=== PATIENT | male | born 1970 | race Caucasian/White ===

== ENCOUNTER → 2017-06-11 | Outpatient (CLI) | payer OTHER ==
--- NOTE | 2017-06-11 11:56 | MR ---
EXAMINATION TYPE: MR knee LT wo con DATE OF EXAM: 06/11/2017 11:47 AM COMPARISON: NONE HISTORY: Left knee pain TECHNIQUE: Multiplanar, multisequence imaging of the left knee is performed. FINDINGS: MEDIAL MENISCUS: Complex tear posterior horn medial meniscus. Radial tear suspected anterior horn med ial meniscus. LATERAL MENISCUS: Anterior and posterior horns are intact without tear. CRUCIATE LIGAMENTS: The anterior and posterior cruciate ligaments are intact and unremarkable. COLLATERAL LIGAMENTS: The medial collateral ligament and lateral collateral ligament complex are intact and unremarkable. EXTENSOR MECHANISM: Visualized quadriceps and patellar tendons are intact. EFFUSION: Small to moderate joint effusion noted. POPLITEAL CYST: No popliteal/costa cyst. TRICOMPARTMENT SPACES: Mild narrowing medial tibiofemoral joint space as well as the patellofemoral j oint space. Spur formation noted. CARTILAGE: The articular cartilage is maintained without abnormal signal or full-thickness defect. BONE MARROW SIGNAL: No focal abnormal marrow signal is appreciated: OTHER: No additional significant abnormality is appreciated. IMPRESSION: 1. Medial meniscal tears as discussed. 2. Joint effusion.
== END | disposition home or self-care (01) ==
LOC: RADMRIMAIN 11:09
PROVIDERS: ATTEND Orthopaedic Surgery
DX: S83.242A Other tear of medial meniscus, current injury, left knee, initial encounter (principal)

== ENCOUNTER → 2017-07-19 | Outpatient (CLI) | payer OTHER | END | disposition home or self-care (01) | LOC: LABPAT 16:47 | PROVIDERS: ATTEND Orthopaedic Surgery | DX: Z01.812 Encounter for preprocedural laboratory examination (principal); M23.92 Unspecified internal derangement of left knee | CPT/HCPCS: 84132 ==

== ENCOUNTER 2017-07-26 06:25 | Day surgery (SDC) | payer OTHER ==
[2017-07-19 11:11] VITALS: BMI 36.9
--- NOTE | 2017-07-25 19:32 | HP ---
HISTORY AND PHYSICAL CHIEF COMPLAINT: Left knee pain. 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 He notes medial pain along with swelling and locking. He has tried medications in addition to an injection with only partial temporary relief. He had a previous arthroscopy in 2009. He notes the pain limits his normal function and activities. PAST MEDICAL HISTORY: Negative. PAST SURGICAL HISTORY: Significant for left knee arthroscopy. CURRENT MEDICATIONS: None. He denies drug allergies. FAMILY HISTORY: Noncontributory. SOCIAL HISTORY: Negative for current tobacco or alcohol use. Sixteen point review of systems otherwise reviewed and is noncontributory. EXAMINATION: The patient is approximately 5 feet 9 inches, 236 pounds of endomorphic habitus. HEENT is nonfocal. Neck is supple. He has painless passive motion of his left hip. Straight leg raise is negative. Active motion of left knee -10 to 115 degrees of flexion. He has a large effusion. He is tender about the medial joint line. Collaterals are stable. Latricia's negative, Jose Carlos's elicits medial pain. His distal neurovascular appears intact in the left lower extremity. MRI report from 06/11/2017 of the left knee shows evidence of a posterior medial meniscal tear along with medial compartment osteoarthrosis. IMPRESSION: Left knee medial compartment osteoarthrosis with symptomatic medial meniscal tear. RECOMMENDATIONS: I talked to the patient at length regarding his treatment options. At this point, he is having persistent pain and mechanical symptoms, despite conservative measures. After a thorough discussion, he opts to proceed with surgery. We will plan to proceed with left knee arthroscopy with possible partial medial meniscectomy and possible medial femoral chondrectomy. We will likely perform that as an outpatient procedure. Risks and benefits were discussed at length in layman's terms. MMODL / IJN: [id number] /
[~2017-07-26 06:25] MED LIST: LACTATED RINGERS 1,000 ML IV SCH; MORPHINE SULFATE 2 MG/ML SYRINGE IV PRN; ONDANSETRON 4 MG/2 ML VIAL IVP PRN; ceFAZolin IN SWFI 2 GM/20 ML SYRINGE IVP ONE
[2017-07-26 06:56] VITALS: RESP 16
[2017-07-26] MEDS ORDERED: LIDOCAINE 1% 20 ML VIAL (10MG/ML) FOR IV START INTRADERMA ONE (07:02)
[2017-07-26] MEDS ORDERED: PROPOFOL 10 MG/ML 20 ML VIAL IV ONE (07:54)
[2017-07-26] MEDS ORDERED: fentaNYL (PF) 50 MCG/ML 2 ML AMP ONE (07:54)
[2017-07-26] MEDS ORDERED: MIDAZOLAM 2 MG/2 ML VIAL ONE (07:54)
[2017-07-26] MEDS ORDERED: LIDOCAINE 1% INJ 10MG/ML (20 ML MDV) ONE (07:54)
[2017-07-26] MEDS ORDERED: MEPERIDINE 50 MG/ML SYRINGE IVP ONE ×2 (08:50→08:55)
--- NOTE | 2017-07-26 08:51 | P.OP ---
Date of Procedure: 07/26/17 Preoperative Diagnosis: Left knee internal derangement Postoperative Diagnosis: Left knee posterior medial meniscal tear/grade 2/3 chondral injury distal lateral femoral condyle/grade 2 chondral injury lateral patella facet Procedure(s) Performed: Left knee arthroscopic partial medial meniscectomy/lateral femoral chondrectomy/ patellar chondroplasty Anesthesia: CARMEN Surgeon: Darshan Pete Estimated Blood Loss (ml): 10 Pathology: none sent Condition: stable Disposition: PACU Indications for Procedure: Patient is a 46-year-old male who presents with progressive left knee pain and mechanical symptoms despite adequate conservative measures. A discussion of the risks and benefits of operative intervention versus continued conservative measures was made with the patient. He opted to proceed with surgery. The specific risks of surgery to include infection, neurovascular injury, development of blood clots, possible incomplete resolution of symptoms, possible worsening symptoms and need for subsequent procedures was discussed. Informed consent was obtained. Operative Findings: As below Description of Procedure: The patient was brought to the operating room, and after induction of general anesthesia examined the left knee. Collaterals were stable, Latricia was negative, and posterior drawer was negative. The left lower extremity was prepped and draped in normal fashion. A superior lateral portal was made through a 3 mm skin incision superior and lateral to the patella. This was used for outflow. A moderate effusion was encountered. A lateral portal was made through a 5 mm vertical skin incision lateral to the patellar tendon above the joint line. Diagnostic arthroscopy was performed. A medial portal was made through a similar incision medial to the patellar tendon above the joint line. On inspection the medial compartment, he is noted have a complex tear involving the posterior horn medial meniscus in the white-red junction. This was not amenable to repair. This debrided back to stable base with straight baskets and a motorized shaver. Grade 3/4 chondral changes were noted involving the anterior medial portion of the medial tibial plateau. On inspection the notch, the anterior cruciate ligament appeared to be intact. On inspection of the lateral compartment, the lateral meniscus appeared intact. A grade 2 chondral defect was noted involving the distal central portion of the lateral femoral condyle measuring 6 x 8 mm. There was a loose chondral flap debrided back to stable base with a motorized shaver. On inspection patellofemoral articulation, a grade 2 chondral injury was noted involving the lateral patella facet. This loose chondral fragment was debrided back to stable base with a motorized shaver. The gutters were clear debris. The knee was then thoroughly irrigated. The portals were closed with Steri-Strips. A sterile dressing was applied in addition to a compression stocking. The patient was awoken from general anesthesia and transferred to recovery room in good condition. Blood loss was estimated at 10 mL. No complications were incurred.
[2017-07-26 08:57] VITALS: TEMP 96.7
[2017-07-26] MEDS: HYDROmorphone 0.5 MG/0.5 ML SYRINGE IVP PRN ×2 (09:00→09:15)
[2017-07-26 09:59] VITALS: BP 130/90; PULSE 61
== END 2017-07-26 10:12 | disposition home or self-care (01) ==
LOC: OR 06:25
PROVIDERS: ATTEND Orthopaedic Surgery
DX: S83.242A Other tear of medial meniscus, current injury, left knee, initial encounter (principal); S89.82XA Other specified injuries of left lower leg, initial encounter; X50.1XXA Overexertion from prolonged static or awkward postures, initial encounter; K21.9 Gastro-esophageal reflux disease without esophagitis; Z79.899 Other long term (current) drug therapy
CPT/HCPCS: 29881; J2250; J2175; J2405; J2001; J3010; J2704; J1170; J0690

== ENCOUNTER → 2017-08-01 | Outpatient (CLI) | payer OTHER ==
--- NOTE | 2017-08-01 14:07 | CT ---
EXAMINATION TYPE: CT abdomen pelvis w con DATE OF EXAM: 08/01/2017 COMPARISON: NONE HISTORY: Right lower quadrant pain CT DLP: 1991.3 mGycm, Automated Exposure Control for Dose Reduction was Utilized. CONTRAST: CT scan of the abdomen and pelvis is performed with oral and with IV Contrast, patient injected with 100 mL of Isovue 300. FINDINGS: LUNG BASES: No significant abnormality is appreciated. LIVER/GB: No significant abnormality is appreciated. PANCREAS: No significant abnormality is seen. SPLEEN: No significant abnormality is seen. ADRENALS: No significant abnormality is seen. KIDNEYS: No significant abnormality is seen. BOWEL: The oral contrast reaches level of the mid right colon. Appendix is felt within normal limits from the base of cecum. There is no suspicious small or large bowel dilatation. Terminal ileum is con trast-filled and felt unremarkable. PROSTATE/SEMINAL VESICLES: No gross abnormality seen. LYMPH NODES: No greater than 1cm abdominal or pelvic lymph nodes are appreciated. OSSEOUS STRUCTURES: Mild disc space narrowing lumbosacral junction is present. OTHER: No significant additional abnormality is seen. IMPRESSION: No significant acute finding is seen to account for patient's clinical symptoms.
== END | disposition home or self-care (01) ==
LOC: RADCTMAIN 11:56
PROVIDERS: ATTEND Family Medicine
DX: R10.31 Right lower quadrant pain (principal)
CPT/HCPCS: 74177; Q9967

== ENCOUNTER → 2017-08-16 | Outpatient (CLI) | payer OTHER ==
--- NOTE | 2017-08-16 16:29 | MR ---
EXAMINATION TYPE: MR knee RT wo con DATE OF EXAM: 08/16/2017 COMPARISON: Plain film dated 03/04/2017 HISTORY: Rt knee pain, no trauma TECHNIQUE: Multiplanar, multisequence imaging of the right knee is performed without IV contrast. FINDINGS: MEDIAL MENISCUS: Posterior horn of the medial meniscus shows a truncated appearance, there is some st ellate signal present at the lateral extent with extension to the articular surface, the root appears somewhat attenuated and possibly discontinuous. LATERAL MENISCUS: Anterior and posterior horns are intact without tear. CRUCIATE LIGAMENTS: The anterior and posterior cruciate ligaments are intact and unremarkable. COLLATERAL LIGAMENTS: The medial collateral ligament and lateral collateral ligament complex are inta ct and unremarkable. EXTENSOR MECHANISM: Visualized quadriceps and patellar tendons are intact. EFFUSION: Suprapatellar joint effusion is present POPLITEAL CYST: No popliteal/costa cyst. TRICOMPARTMENT SPACES: Joint space loss is most significant medially. 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 Possible degenerative tear of the medial meniscus as described
== END | disposition home or self-care (01) ==
LOC: RADMRIMAIN 15:01
PROVIDERS: ATTEND Orthopaedic Surgery
DX: M17.11 Unilateral primary osteoarthritis, right knee (principal)

== ENCOUNTER 2017-09-06 08:18 | Day surgery (SDC) | payer OTHER ==
[2017-09-02 15:05] VITALS: BMI 36.9
--- NOTE | 2017-09-05 09:28 | HP ---
HISTORY AND PHYSICAL CHIEF COMPLAINT: Right knee pain. 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 He has tried medications and an injection with only partial temporary relief. He notes pain and giving way with certain activities. Currently, he is off work, recovering from his left knee arthroscopy. PAST MEDICAL HISTORY: Negative. PAST SURGICAL HISTORY: Significant for previous left knee arthroscopy. CURRENT ALLERGIES: None. He denies drug allergies. FAMILY HISTORY: Noncontributory. SOCIAL HISTORY: Negative for current tobacco or alcohol use. REVIEW OF SYSTEMS: A 16 point review of systems otherwise reviewed and is noncontributory. PHYSICAL EXAMINATION: On examination, the patient is approximately 5 foot 9, 236 pounds of endomorphic habitus. HEENT exam is nonfocal. Neck is supple. He has pain with passive motion of his right hip. Straight leg raise is negative. Active motion right knee -10 to 105 degrees of flexion. He has mild effusion. He is tender about the medial joint line. Collaterals are stable, Latricia's negative, Jose Carlos's elicits medial pain. He has genu varum alignment. His distal neurovascular appears intact in the right lower extremity. X-rays of the right knee obtained in the office show moderate to severe medial compartment narrowing. MRI report from 08/16/2017 shows medial compartment degenerative changes along with a medial meniscal tear. IMPRESSION: 1. Internal derangement, right knee with symptomatic medial meniscal tear. 2. Right knee medial compartment osteoarthrosis. 3. Increased body mass index. RECOMMENDATIONS: I talked to the patient at length regarding his condition and treatment options. At this point, he notes he is quite symptomatic with pain and mechanical symptoms and opts to proceed with surgery. We will plan to proceed with arthroscopic evaluation with probable partial medial meniscectomy. We will likely perform that as an outpatient procedure. Risks and benefits were discussed at length in layman's terms. MMODL / IJN: [id number] /
[~2017-09-06 08:18] MED LIST changes: +LIDOCAINE 1% 20 ML VIAL (10MG/ML) FOR IV START INTRADERMA PRN; -MORPHINE SULFATE 2 MG/ML SYRINGE IV PRN; -ONDANSETRON 4 MG/2 ML VIAL IVP PRN
[2017-09-06] MEDS ORDERED: ONDANSETRON 4 MG/2 ML VIAL IVP ONE (08:38)
[2017-09-06] MEDS ORDERED: DEXAMETHASONE SOD PHOSPHATE 10 MG/ML 1 ML VIAL IV ONE (08:41)
[2017-09-06] MEDS ORDERED: fentaNYL (PF) 50 MCG/ML 2 ML AMP ONE (10:10)
[2017-09-06] MEDS ORDERED: LIDOCAINE 1% INJ 10MG/ML (20 ML MDV) ONE (10:10)
[2017-09-06] MEDS ORDERED: KETOROLAC 30 MG/ML 1 ML VIAL ONE (10:10)
[2017-09-06] MEDS ORDERED: HYDROmorphone (PF) 1 MG/ML ONE (10:10)
[2017-09-06] MEDS ORDERED: SUCCINYLCHOLINE CHLORIDE 100 MG/5 ML SYR IV ONE (10:10)
[2017-09-06] MEDS ORDERED: PROPOFOL 10 MG/ML 20 ML VIAL IV ONE (10:10)
[2017-09-06] MEDS ORDERED: MIDAZOLAM 2 MG/2 ML VIAL ONE (10:10)
--- NOTE | 2017-09-06 11:01 | P.OP ---
Date of Procedure: 09/06/17 Preoperative Diagnosis: Right knee internal derangement/osteoarthrosis Postoperative Diagnosis: Right knee posterior medial meniscal tear/posterior lateral meniscal tear/ reactive synovitis/grade 3 chondral injury distal medial femoral condyle Procedure(s) Performed: Right knee arthroscopic partial medial/lateral meniscectomy, medial femoral chondrectomy, partial synovectomy of the medial, lateral, and patellofemoral compartments Anesthesia: FLAKOA Surgeon: Darshan Pete Estimated Blood Loss (ml): 10 Pathology: none sent Condition: stable Disposition: PACU Indications for Procedure: The patient's a 46-year-old male presents with progressive right knee pain and mechanical symptoms despite conservative measures. A discussion of the risks and benefits of operative intervention versus continued conservative measures was made with patient. He opted to proceed with surgery. Operative risks to include infection, neurovascular injury, development of blood clots, possible incomplete resolution of symptoms, possible worsening symptoms and need for subsequent procedures was discussed. Informed consent was obtained. Operative Findings: As below Description of Procedure: The patient was brought to the operating room, and after induction of general anesthesia examined the right knee. Collaterals were stable, Latricia was negative, and posterior drawer was negative. The right lower extremity was prepped and draped in normal fashion. A superior lateral portal was made through a 5 mm skin incision. This was used for outflow. A moderate effusion was encountered. A lateral portal was made just lateral to the patellar tendon above the joint line through a 5 mm vertical skin incision. Diagnostic arthroscopy was performed. A similar incision was made medial to the patella tendon above the joint line. On inspection of the medial compartment, a complex tear involving the posterior horn of the medial meniscus in the white- junction was noted. This was debrided back to stable base with straight baskets and a motorized shaver. Grade 3/4 chondral changes were noted throughout the medial compartment. A small loose chondral fragment was noted that was debrided back to stable base on the distal medial femoral condyle. Reactive synovitis involving the anterior medial, lateral, and patellofemoral articulation was debrided with a motorized shaver. On inspection the notch, the anterior cruciate ligament appeared to be intact. On inspection the lateral compartment, a small oblique tear involving the posterior aspect of the lateral meniscus in the white-white junction was noted. This debrided back to stable base with a straight baskets and motorized shaver. On inspection of the patellofemoral articulation, there is chondral fibrillation and grade 2/3 degenerative changes however no loose chondral fragments. The gutters were clear debris. The knee was then thoroughly irrigated. The portals were closed with Steri-Strips. A sterile dressing was applied in addition to a compression stocking. The patient was awoken from general anesthesia and transferred to recovery room in good condition. Blood loss was estimated at 10 mL. No complications were incurred.
[2017-09-06 11:07] VITALS: TEMP 97
[2017-09-06 11:43] VITALS: BP 160/79; PULSE 71; RESP 16
== END 2017-09-06 12:12 | disposition home or self-care (01) ==
LOC: OR 08:18
PROVIDERS: ATTEND Orthopaedic Surgery
DX: S83.241A Other tear of medial meniscus, current injury, right knee, initial encounter (principal); S83.281A Other tear of lateral meniscus, current injury, right knee, initial encounter; S89.81XA Other specified injuries of right lower leg, initial encounter; X58.XXXA Exposure to other specified factors, initial encounter; M65.861 Other synovitis and tenosynovitis, right lower leg; K21.9 Gastro-esophageal reflux disease without esophagitis; Z79.891 Long term (current) use of opiate analgesic
CPT/HCPCS: 29880; J2250; J1100; J2405; J2001; J3010; J1885; J1170; J0330; J2704; J0690

== ENCOUNTER → 2019-08-07 | Outpatient (CLI) | payer OTHER | END | disposition home or self-care (01) | LOC: LABWHC1 10:45 | PROVIDERS: ATTEND Orthopaedic Surgery | DX: Z01.812 Encounter for preprocedural laboratory examination (principal); Z01.818 Encounter for other preprocedural examination; M17.11 Unilateral primary osteoarthritis, right knee; Z11.59 Encounter for screening for other viral diseases | CPT/HCPCS: 87070; U0003 ==

== ENCOUNTER 2019-08-11 08:53 | Day surgery (SDC) | payer OTHER ==
[2019-08-06 11:34] VITALS: BMI 41.3
--- NOTE | 2019-08-10 11:46 | HP ---
HISTORY AND PHYSICAL CHIEF COMPLAINT: Right knee pain. 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 It has worsened recently. No swelling, stiffness, and giving out. He notes this significantly limits his activity. He has had previous arthroscopies on both knees. He has tried medications and injections in the past. PAST MEDICAL HISTORY: Significant for gastroesophageal reflux disease. PAST SURGICAL HISTORY: Significant bilateral knee arthroscopy. CURRENT MEDICATIONS: None. He denies drug allergies. FAMILY HISTORY: Noncontributory. SOCIAL HISTORY: Negative for current tobacco or alcohol use. REVIEW OF SYSTEMS: Sixteen point review of systems otherwise reviewed and is noncontributory. PHYSICAL EXAMINATION: On examination, the patient is approximately 5 foot 9, 275 pounds of endomorphic habitus. HEENT exam is nonfocal. NECK: Supple. He has painless passive motion of the right hip. Straight leg raise is negative. Active motion right knee -6 to 120 degrees of flexion. He has mild effusion. He is tender about the medial joint line. Collaterals are stable, Latricia is negative, Jose Carlos's is equivocal. He has genu varum alignment. His distal neurovascular appears intact in the right lower extremity. Weightbearing notch lateral and merchant views of the right knee obtained in the office show severe medial compartment osteoarthrosis. IMPRESSION: 1. Right knee severe medial compartment osteoarthrosis. 2. Increased body mass index. RECOMMENDATIONS: I talked to the patient at length regarding his condition and treatment options. He remains quite symptomatic despite extensive conservative measures. After thorough discussion, he opts to proceed with surgery. We will plan to proceed with right total knee arthroplasty. Risks and benefits were discussed at length in layman's terms. We will institute DVT prophylaxis postoperatively. The patient underwent preoperative medical evaluation by Dr. Barba . MMODL / IJN: [id number] /
[~2019-08-11 08:53] MED LIST changes: +ACETAMINOPHEN TAB 500 MG TAB PO ONE; -LACTATED RINGERS 1,000 ML IV SCH; -LIDOCAINE 1% 20 ML VIAL (10MG/ML) FOR IV START INTRADERMA PRN; +MELOXICAM 7.5 MG TAB PO ONE; +ROPIVACAINE 246.25 MG, EPINEPHrine 0.5 MG, KETOROLAC 30 MG, cloNIDine HCL/PF 80 MCG, WA... MISCELLANE ONE; +TRANEXAMIC ACID 1,000 MG in SODIUM CHLORIDE 0.9% 100 ML IVPB ONE; +ceFAZolin 3 GM in SODIUM CHLORIDE 0.9% 100 ML IVPB ONE; -ceFAZolin IN SWFI 2 GM/20 ML SYRINGE IVP ONE
[2019-08-11] MEDS ORDERED: ACETAMINOPHEN TAB 500 MG TAB ONE (09:27)
[2019-08-11] MEDS ORDERED: ONDANSETRON 4 MG/2 ML VIAL ONE (09:28)
[2019-08-11] MEDS: LACTATED RINGERS 1,000 ML IV SCH ×2 (09:36→15:29)
[2019-08-11] MEDS ORDERED: DEXAMETHASONE SOD PHOSPHATE 10 MG/ML 1 ML VIAL IV ONE (09:37)
[2019-08-11] MEDS ORDERED: ONDANSETRON 4 MG/2 ML VIAL IVP ONE (09:37)
[2019-08-11] MEDS ORDERED: LIDOCAINE 1% (10MG/ML) FOR IV START INTRADERMA ONE (09:37)
[2019-08-11] MEDS ORDERED: MIDAZOLAM 2 MG/2 ML VIAL IV ONE (09:49)
[2019-08-11] MEDS ORDERED: fentaNYL (PF) 50 MCG/ML 2 ML AMP IV ONE (09:49)
[2019-08-11] MEDS ORDERED: PROPOFOL 10 MG/ML 20 ML VIAL IV ONE (10:39)
[2019-08-11] MEDS ORDERED: TRANEXAMIC ACID 1,000 MG/10 ML VIAL ONE (10:39)
[2019-08-11] MEDS ORDERED: fentaNYL (PF) 50 MCG/ML 2 ML AMP ONE (10:39)
[2019-08-11] MEDS ORDERED: MIDAZOLAM 2 MG/2 ML VIAL ONE (10:39)
[2019-08-11] MEDS ORDERED: PHENYLEPHRINE-0.9% NACL SYG 1 MG/10 ML SYRINGE ONE (10:39)
[2019-08-11] MEDS ORDERED: SODIUM CHLORIDE 0.9% 100 ML BAG ONE (10:39)
[2019-08-11] MEDS ORDERED: ceFAZolin 3,000 MG in SODIUM CHLORIDE 0.9% IRRIGATIO 3,000 ML IRRIGATION ONE (11:15)
[2019-08-11] MEDS ORDERED: LACTATED RINGERS 1,000 ML IV ONE (11:30)
[2019-08-11] MEDS ORDERED: HYDROmorphone 1 MG/ML 1 ML SYRINGE IVP PRN (12:27)
[2019-08-11] MEDS ORDERED: MAGNESIUM HYDROXIDE 2,400 MG/10 ML CUP PO PRN (12:27)
[2019-08-11] MEDS ORDERED: ACETAMINOPHEN TAB 325 MG TAB PO PRN (12:27)
[2019-08-11] MEDS ORDERED: NALOXONE 0.4 MG/ML 1 ML VIAL IV PRN (12:27)
[2019-08-11] MEDS ORDERED: traMADol 50 MG TAB PO PRN (12:27)
[2019-08-11] MEDS ORDERED: HYDROmorphone 0.5 MG/0.5 ML SYRINGE IVP PRN (12:27)
[2019-08-11] MEDS ORDERED: ONDANSETRON 4 MG/2 ML VIAL IVP PRN (12:27)
[2019-08-11] MEDS ORDERED: HYDROmorphone 1 MG/ML 1 ML SYRINGE IVP ONE ×3 (13:00→14:04)
--- NOTE | 2019-08-11 13:00 | P.OP ---
Date of Procedure: 08/11/19 Preoperative Diagnosis: Right knee severe tricompartmental osteoarthrosis Postoperative Diagnosis: Same Procedure(s) Performed: Right total knee arthroplastycementedcruciate retaining Implants: Depuy Attune size 8 cemented femoral component, size 7 cemented tibial component, 12 mm articular surface, 38 mm cemented patellar component. This is a cruciate retaining implant. Anesthesia: regional, local, spinal Surgeon: Darshan Pete Reducing Salon Attendant #1: Edil Zaldivar Estimated Blood Loss (ml): 75 Pathology: other (Bone fragments) Condition: stable Disposition: PACU Indications for Procedure: The patient is a 48-year-old male who presents with progressive right knee pain secondary to osteoarthrosis despite extensive conservative measures. A discussion of the risks and benefits of operative intervention versus continued conservative measures made with patient. He opted to proceed with surgery. Operative risks to include infection, neurovascular injury, development of blood clots, possible component loosening, possible component failure need for subsequent procedures was discussed. Informed consent was obtained. Operative Findings: As below Description of Procedure: The patient was brought to the operating room, and after induction of spinal anesthesia the right lower extremity was prepped and draped in a normal fashion. The tourniquet was inflated to 270 mmHg. A longitudinal incision extending 3 finger breaths above the superior pole of the patella extending to the medial aspect the tibial tubercle was then made. The skin and subcutaneous tissues were divided sharply. Electrocautery was used for hemostasis. A medial parapatellar arthrotomy was then performed. The medial soft tissues to include the superficial and deep portions of the medial collateral ligament as well as the medial hamstring tendons were elevated subperiosteally. The proximal medial tibia osteophytes were carefully removed. The patella was everted. The knee was flexed. A portion of the retropatellar fat pad was excised sharply. The anterior cruciate ligament was sacrificed. A starting hole was made in the distal femur 1 cm anterior to the posterior cruciate origin. An intramedullary femoral guide was gently inserted planning on 5 valgus distal cut with 9 mm distal resection. The cutting block was pinned in place. The distal cut was then made. The posterior referencing sizing guide was utilized. 3 of external rotation was built into the system and verified off the trans- epicondylar axis and the posterior condyles. I felt size the was most appropriate. The cutting block was pinned in place. The anterior, posterior, and chamfer cuts were then made. The bone fragments were removed. A sulcus cut was then made with the appropriate guide. The trial size 8 femoral component was then placed and was fully seated. There was good anterior to posterior and medial to lateral fit. The distal peg holes were then drilled. The trial component was then removed. Attention was then paid towards preparing the proximal tibia. An extra medullary guide was utilized in line with the tibial shaft and second metatarsal distally. A 7 posterior slope was planned. I planned on 2 mm resection from the medial compartment. The cutting block was pinned in place. The proximal tibial cut was then made. The bone was removed in one fragment. The remnants of the medial and lateral menisci were excised the capsule junction with electrocautery. The tibia sized most appropriately at size 7. The posterior osteophytes off the distal femur were carefully removed with a curved osteotome. The trial tibial and femoral components were placed along with a 12 millimeters articular surface. I was able to obtain full flexion and extension with good stability with varus and valgus stress. After several flexion and extension cycles, the tibial rotation was marked with electrocautery in line with the medial one third of the tibial tubercle. At tention was then paid towards preparing the patella. A patella reamer was utilized taking this down to 14 mm of bone stock. A good flush cut was made. The patella sized most appropriately at 38 millimeters. The peg holes were then drilled. The trial component was placed. The knee was taken through a range of motion. I had good patellofemoral tracking with no hands technique. The trial components were then removed. The tibia was prepared in the appropriate rotation with appropriate drill and keel punch. The flexion and extension gaps were checked and felt to be symmetric. The posterior soft tissues were injected with ropivacaine. The bony surfaces were prepared with pulsatile lavage and dried. The deep tibial component was then cemented in place and was fully seated. Excess cement was removed. The femoral component was cemented in place and was fully seated. Again excess cement was removed. The trial 12 millimeters surface was then inserted in the knee was put in full extension. The patella component was cemented in place. After the cement had sufficiently hardened, the knee was again taken through a range of motion. Again there was good stability in flexion and extension with varus and valgus stress. The trial articular surface was then removed. The final articular surface was placed and was impacted. Care was taken to avoid any soft tissue interposition. Pulsatile lavage was again utilized. The tourniquet was deflated with approximately 65 minutes total tourniquet time. There was minimal drainage therefore a deep drain was not placed. The medial parapatellar arthrotomy was then closed with #2 Ethibond suture. The subcutaneous tissues were reapproximated interrupted 2- 0 Vicryl sutures. The skin was reapproximated with 3-0 subarticular strata fix suture. Skin tape and adhesive was applied. A sterile dressing was applied. The patient was then awoken from sedation and transferred to recovery room in good condition. Blood loss was estimated at 75 milliliters. No complications were incurred. Sponge and needle counts were correct at the end the case. Matt JENNINGS assisted during the major components this case to include exposure, bone resection, and implantation.
[2019-08-11] MEDS ORDERED: ROPIVACAINE 0.2%-NS ON-Q PUMP 1,090 MG, EMPTY PAIN BALL 1 EACH MISCELLANE PRN (13:05)
[2019-08-11] MEDS ORDERED: diphenhydrAMINE 50 MG/ML 1 ML VIAL IVP ONE (13:13)
[2019-08-11] MEDS ORDERED: KETOROLAC 30 MG/ML 1 ML VIAL IVP ONE (13:20)
--- NOTE | 2019-08-11 13:43 | XR ---
EXAMINATION TYPE: XR knee limited RT DATE OF EXAM: 08/11/2019 COMPARISON: NONE TECHNIQUE: Two views submitted HISTORY: Post op FINDINGS: There is a prosthetic knee in near anatomic alignment. There is soft tissue edema and emphysema. IMPRESSION: 1. Postoperative change. Appears in near-anatomic alignment
[2019-08-11] MEDS ORDERED: HYDROmorphone 0.5 MG/0.5 ML SYRINGE IVP ONE ×2 (14:25→15:00)
--- NOTE | 2019-08-11 15:05 | P.ANPRN ---
Procedure Note - Anesthesia - Nerve Block Performed Right Adductor Canal Infusion Time Out Performed: Yes Date of Procedure: 08/11/19 Indication: Acute Post-Operative Pain, Dx/Pain Location, Requested by Surgeon Sedation Type: Sedate with meaningful contact maintained Preparation: Sterile Prep Position: Supine Catheter: Indwelling Needle Types: Pajunk Needle Gauge: 21 Ultrasound used to visualize needle placement: Yes Ultrasound used to observe medication spread: Yes Injectate: 0.5% Ropivacaine (see comment for volume) (20ml) Blood Aspirated: No Pain Paresthesia on Injection Noted: No Resistance on Injection: Normal Image Stored and Saved: Yes Events: Uneventful and Well Tolerated
[2019-08-11] MEDS: traMADol 50 MG TAB PO SCH ×3 (15:26→22:16)
[2019-08-11] MEDS: HYDROcodone/APAP 7.5-325MG 1 EACH TAB PO PRN (20:11)
[2019-08-11] MEDS: ceFAZolin 3 GM in SODIUM CHLORIDE 0.9% 100 ML IVPB SCH (20:12)
[2019-08-11] MEDS ORDERED: SENNOSIDES-DOCUSATE SODIUM 1 EACH TAB PO SCH (21:00)
[2019-08-11] MEDS ORDERED: OXYMETAZOLINE 0.05% NASL SPRAY 1 SPRAY BOTTLE NASAL PRN (23:00)
[2019-08-12] MEDS: HYDROcodone/APAP 7.5-325MG 1 EACH TAB PO PRN ×3 (02:22→14:21)
[2019-08-12] MEDS: ceFAZolin 3 GM in SODIUM CHLORIDE 0.9% 100 ML IVPB SCH (02:23)
[2019-08-12 04:19] VITALS: RESP 18
--- NOTE | 2019-08-12 05:43 | CONS ---
CONSULTATION DATE OF SERVICE: 08/11/2019 REASON FOR CONSULTATION: Advice regarding degenerative joint disease, hernia repair and other medical issues requested by Orthopedic Surgery. HISTORY OF PRESENT ILLNESS: This 48-year-old gentleman with a past medical history of DJD, history of hernia repair, orthopedic surgeries and nicotine dependence being followed by Dr. Barba in the outpatient setting underwent right total knee arthroplasty cemented cruciate retaining for severe DJD by Dr. Pete. The patient tolerated the procedure well. There is no history of any fever, rigors. No history of headache, loss of consciousness or seizures. Patient is complaining of some minimal pain at this time. PAST MEDICAL HISTORY: History of DJD, history of hernia repair, orthopedic surgery, history of knee arthroscopy. MEDICATIONS: Nasal spray p.r.n. ALLERGIES: None. FAMILY HISTORY: History of breast cancer in the family. SOCIAL HISTORY: Occasional alcohol abuse. History of smoking. REVIEW OF SYSTEMS: ENT: No diminished hearing or diminished vision. CARDIOVASCULAR SYSTEM: No angina or palpitation. RESPIRATORY SYSTEM: No cough or hemoptysis. GI: No nausea. : No dysuria. NERVOUS SYSTEM: As mentioned earlier. ALLERGIES/IMMUNOLOGY: No asthma or hayfever. MUSCULOSKELETAL: As mentioned earlier. HEMATOLOGY: No history anemia. ENDOCRINE: No history of diabetes or hypothyroidism. CONSTITUTIONAL: As mentioned earlier. DERMATOLOGY: Negative. RHEUMATOLOGY: Negative. PSYCHIATRY: As mentioned earlier. PHYSICAL EXAMINATION: The patient is alert and oriented x3. Pulse 85, blood pressure 127/85, respirations 17, temperature 98.4, pulse ox 95% on room air. HEENT: Conjunctivae normal. Oral mucosa moist. NECK: No jugular venous distention. No carotid bruit. No lymph node enlargement. CARDIOVASCULAR: S1, S2 muffled. RESPIRATORY: Breath sounds diminished at the bases. No rhonchi, no crackles. ABDOMEN: Soft, nontender. No mass palpable. LEGS: Status post knee arthroplasty. NERVOUS SYSTEM: No focal deficits. LABS: Hemoglobin 12.6. Otherwise, coags are normal. Chemistry glucose 115, total bilirubin is 1.3. LDL is 131 previously remotely. ASSESSMENT: 1. Status post right total knee arthroplasty for severe degenerative joint disease. 2. History of degenerative joint disease. 3. History of hernia repair. 4. History of a knee arthroscopy. 5. Remote history of nicotine dependence. 6. Obesity with body mass index 42. 7. FULL CODE. RECOMMENDATIONS AND DISCUSSION: This 48-year-old gentleman presented after surgery. At this time, I recommend to continue current medications, continue symptomatic treatment and incentive spirometry. Otherwise, DVT prophylaxis. Recommend close followup with primary physician closely in the outpatient setting. We will follow the patient closely with you. Thank you Dr. Pete for letting us participate in the care of this patient. MMODL / IJN: [id number] /
[2019-08-12 07:42] VITALS: BP 148/71; PULSE 80; TEMP 97.7
[2019-08-12] MEDS: LACTATED RINGERS 1,000 ML IV SCH (08:37)
[2019-08-12] MEDS ORDERED: RIVAROXABAN 10 MG TAB PO SCH (09:00)
[2019-08-12] MEDS: traMADol 50 MG TAB PO SCH ×2 (09:42→11:51)
[2019-08-12 09:53] LABS: Basophils % (A) 0 %; Eosinophils # (A) 0.1 k/uL (0-0.7); Eosinophils % (A) 1 %; HCT 33.6 % (39.0-53.0); HGB 10.3 gm/dL (13.0-17.5); Hypochromasia Moderate; Lymphocytes # (A) 2.1 k/uL (1.0-4.8); Lymphocytes % (A) 20 %; MCHC 30.6 g/dL (31.0-37.0); MCV 84.8 fL (80.0-100.0); Monocytes # (A) 0.6 k/uL (0-1.0); Monocytes % (A) 6 %; Neutrophils # (A) 7.4 k/uL (1.3-7.7); Neutrophils % (A) 71 %; Platelet Count 247 k/uL (150-450); RBC 3.96 m/uL (4.30-5.90); RDW 14.9 % (11.5-15.5); WBC 10.5 k/uL (3.8-10.6)
--- NOTE | 2019-08-12 11:05 | P.PN ---
Subjective Progress Note Date: 08/12/19 Principal diagnosis: Status post right total knee arthroplasty patient doing well today. He has no acute complaints. Denies chest pain or shortness of breath. Objective - Vital Signs Vital signs: Vital Signs Temp 97.7 F 08/12/19 07:00 Pulse 80 08/12/19 08:00 Resp 18 08/12/19 08:00 BP 148/71 08/12/19 07:00 Pulse Ox 97 08/12/19 07:00 Intake & Output 08/11/19 08/12/19 08/12/19 18:59 06:59 18:59 Intake Total 1801 400 Output Total 75 Balance 1726 400 Weight 129 kg Intake: IV 1801 Oral 400 Output: Estimated Blood Loss 75 Other: Voiding Method Toilet Toilet Toilet # Voids 1 - Exam Right lower extremity: Incision is clean, dry, and intact. The exofin fusion tape is in good condition. There is minimal soft tissue swelling and ecchymosis surrounding the medial and lateral aspects of the incision. Calf is soft, no tenderness with palpation. Plantar flexion, dorsiflexion, EHL, FHL are intact. Sensory exam to light touch throughout the extremity is intact, dorsal pedis pulses 2+. - Labs CBC & Chem 7: 08/12/19 09:25 Labs: Abnormal Lab Results - Last 24 Hours (Table) 08/12/19 Range/Units 09:25 RBC 3.96 L (4.30-5.90) m/uL Hgb 10.3 L (13.0-17.5) gm/dL Hct 33.6 L (39.0-53.0) % MCHC 30.6 L (31.0-37.0) g/dL Assessment and Plan Assessment: Status post right total knee arthroplasty Plan: Pain control, we'll discharge home on oral medication GI and DVT prophylaxis, Eliquis 2.5mg bid Wound care instructions discussed Icing elevating techniques discussed Home therapy and nursing after discharge Plan discharge home today Time with Patient: Less than 30
--- NOTE | 2019-08-12 11:09 | P.DS ---
Providers Date of admission: 08/11/2019 Expected date of discharge: 08/12/19 Attending physician: Darshan Pete Consults: 08/11/19 12:27 Consult Physician Routine Consulting Provider: Gerson Barba Consult Reason/Comments: medical management Do you want consulting provider notified?: Yes Primary care physician: Gerson Barba [facility] Course: Date of admission: 08/11/2019 Date of discharge: 08/12/2019 Admission diagnosis: Status post right total knee arthroplasty Discharge diagnosis: Same Attending physician: Dr. Pete Surgical procedures: Right total knee arthroplasty Brief history: Patient is a 48-year-old male with a history of is a primary right knee osteoarthritis. At this point patient has failed conservative treatment measures and has opted to proceed with a elective right total knee arthroplasty. Hospital course: Details of patient's surgery can be found in operative report. Patient tolerated the procedure well and was subsequently transported to orthopedic floor. Patient's orthopeidc and medical care was provided daily. Patient had daily laboratory tests performed for evaluation of overall blood counts. Patient had daily physical therapy to include strengthening range of motion as well as education with walker ambulation. Patient had daily CPM usage as part of their physical therapy program. Patient was treated with Xarelto for their postoperative DVT prophylaxis during their inpatient stay. Patient was noted to have a relatively uneventful postoperative course. Patient reported satisfactory pain control with oral pain medications by postoperative day 0. Patient showed satisfactory progress with physical therapy. Patient moved steadily through the program and had no difficulty meeting the goals by postoperative day 1. Given patient's otherwise satisfactory course and having met physical therapy goals, plan is to discharge patient [home] on postoperative day 1. Discharge condition/disposition: Patient will be discharged home in stable condition. Discharge medications: Instructions are given on resumption of patient's normal daily medications per primary care recommendation, in addition patient will be prescribed [place] 10 mg/325 mg, tramadol 50 mg, Colace 100 mg, Eliquis 2.5mg Discharge instructions: 1. Wound care and infection precautions, keep incision dry and covered while showering, no lotions, creams, moisturizers. No soaking, tubs, pools, hottubs. Do not scrub over the incision. 2. Weight-bear as tolerated with walker / cane until follow-up. 3. Ice and elevate when necessary. Do not exceed 20 minutes per hour with ice pack. 4. Utilize compression sleeve until seen at first follow up appointment. 5. Visiting nursing care. 6. Home physical therapy including home CPM. 7. Pain meds and anticoagulants per prescription. 8. Pain medication has potential to cause constipation. Increase oral fluid and fiber intake. Contact primary care provider if you have not had a bowel movement within 48 hours after discharge 9. No anti-inflammatory medication until discussed at first post operative visit, this including Motrin, Aleve, Mobic, Diclofenac 10. Follow up in office at 2 weeks postop with Matt Zaldivar PA-C 11. Follow up with your primary care doctor 7-10 days after discharge. 12. Contact [facility] with any questions, . Procedures: Right total knee arthroplasty Patient Condition at Discharge: Good Plan - Discharge Summary Discharge Rx Participant: Yes New Discharge Prescriptions: New Docusate [Colace] 100 mg PO DAILY #30 capsule Apixaban [Eliquis] 2.5 mg PO BID #60 tab Hydrocodone/Acetaminophen [[place] 10-325] 1 - 2 each PO Q6H PRN #56 tab PRN Reason: Pain traMADol HCl [Ultram] 50 mg PO Q6H PRN #28 tab PRN Reason: Pain No Action Sinex Nasal [facility]ilion 1 spray NASAL DIRECTED PRN PRN Reason: Congestion Discharge Medication List Sinex Nasal Pavilion 1 spray NASAL DIRECTED PRN 08/06/19 [History] Apixaban [Eliquis] 2.5 mg PO BID #60 tab 08/12/19 [Rx] Docusate [Colace] 100 mg PO DAILY #30 capsule 08/12/19 [Rx] Hydrocodone/Acetaminophen [[place] 10-325] 1 - 2 each PO Q6H PRN #56 tab 08/12/19 [Rx] traMADol HCl [Ultram] 50 mg PO Q6H PRN #28 tab 08/12/19 [Rx] Follow up Appointment(s)/Referral(s): [facility], [NON-STAFF] - Edil Zaldivar PAC [PHYSICIAN SCRAP PILER] - 2 Weeks Patient Instructions/Handouts: *Surgery [facility] - On-Q Pain Pump Discharge Instructions, Precautions after Total Joint Replacement Surgery (DC), Knee Replacement (DC) Activity/Diet/Wound Care/Special Instructions: Orthopedic Discharge Instructions: 1. Wound care and infection precautions, keep incision dry and covered while showering, no lotions, creams, moisturizers. No soaking, pools, hot tubs. Do not scrub over incision. 2. Weight-bear as tolerated with walker / cane until follow-up. 3. Ice and elevate when necessary. Do not exceed 20 minutes per hour with ice pack. 4. Utilize compression sleeve until seen at first follow up appointment. 5. Pain meds and anticoagulants per prescription. 6. Pain medication has potential to cause constipation. Increase oral fluid and fiber intake. Contact primary care provider if you have not had a bowel movement within 48 hours after discharge. 7. No anti-inflammatory medication until discussed at first post operative visit, this including Motrin, Aleve, Mobic, Diclofenac. 8. Follow up in office at 2 weeks postop with Matt Zaldivar PA-C 9. Follow up with your primary care doctor 7-10 days after discharge. 10. Contact [facility] with any questions, [phone]. 11. *Please call [facility] once home to arrange delivery of [employer] (CPM) machine: [phone] Discharge Disposition: HOME WITH HOME HEALTH SERVICES
--- NOTE | 2019-08-12 12:17 | P.PN ---
Progress Note - Text 08/11 630am 48-year-old male status post total knee replacement by Dr. Pete. Patient has an On-Q pump for postop pain control, patient was seen and evaluated this morning. On-Q pump running at 10 mL an hour patient has a VAS score of 2 at rest and 6 with ambulation. Plan to continue On-Q pump infusion
--- NOTE | 2019-08-12 22:28 | PN ---
PROGRESS NOTE DATE OF SERVICE: 08/12/2019 This 48-year-old gentleman who was admitted after knee joint arthroplasty is improving significantly. Patient has some pain which is being managed. No chest pain. No palpitations. No fever. PHYSICAL EXAMINATION: Alert and oriented x3. Pulse is 80, blood pressure 148/70, respiration 18, temperature 97.7, pulse ox 97% on room air. HEENT: Conjunctivae normal. NECK: No jugular venous distention. CARDIOVASCULAR SYSTEM: S1, S2 muffled. RESPIRATORY SYSTEM: Breath sounds diminished at the bases. No rhonchi. No crackles. ABDOMEN: Soft, non-tender. NERVOUS SYSTEM: No focal deficit. EXAMINATION OF RIGHT KNEE: Minimal swelling. Status post arthroplasty. LABS: WBC 10.5, hemoglobin 10.3. ASSESSMENT: 1. Status post right total knee arthroplasty for severe degenerative joint disease. 2. History of degenerative joint disease. 3. History of hernia repair. 4. History of knee arthroscopy. 5. Remote history of nicotine dependence. 6. Obesity with body mass index of 42. 7. FULL CODE. RECOMMENDATIONS AND DISCUSSION: I recommend to continue current medications, continue with the monitoring, symptomatic treatment. Otherwise at this time continue the home medications. Closely follow with primary physician. The rest of the recommendations per Orthopedic Surgery. Incentive spirometry. Further recommendations to follow. MMODL / IJN: [id number] /
== END 2019-08-12 14:37 | disposition home health service (06) ==
LOC: OR 08:53 → 4SSUR 12:55 → OR 08-12 14:37
PROVIDERS: ATTEND Orthopaedic Surgery
DX: M17.0 Bilateral primary osteoarthritis of knee (principal); E66.9 Obesity, unspecified; Z68.41 Body mass index [BMI] 40.0-44.9, adult; Z98.890 Other specified postprocedural states; K21.9 Gastro-esophageal reflux disease without esophagitis; Z87.891 Personal history of nicotine dependence; Z80.3 Family history of malignant neoplasm of breast
CPT/HCPCS: 97110; 97161; 64448; 76942; 85025; 88300; 73560; 27447; C1713; C1776; J2250; J0171; J1200; J1100; J0690 ×3; J2405; J3010; J1885; J1170 ×2; J2795 ×2; J0735

== ENCOUNTER → 2019-10-14 | Outpatient (CLI) | payer OTHER ==
[2019-10-14 14:09] LABS: Basophils # (A) 0.1 k/uL (0-0.2); Basophils % (A) 0 %; Eosinophils # (A) 0.2 k/uL (0-0.7); Eosinophils % (A) 2 %; HCT 41.7 % (39.0-53.0); HGB 12.1 gm/dL (13.0-17.5); Hypochromasia Marked; Lymphocytes # (A) 2.4 k/uL (1.0-4.8); Lymphocytes % (A) 19 %; MCH 22.6 pg (25.0-35.0); MCHC 29.1 g/dL (31.0-37.0); Mean Platelet Volume 8.7; Microcytosis Slight; Monocytes # (A) 0.7 k/uL (0-1.0); Monocytes % (A) 5 %; Neutrophils % (A) 71 %; Platelet Count 384 k/uL (150-450); RBC 5.37 m/uL (4.30-5.90); RDW 15.3 % (11.5-15.5); WBC 12.7 k/uL (3.8-10.6)
[2019-10-14 14:13] LABS: MCV 77.6 fL (80.0-100.0)
[2019-10-14 18:32] LABS: Potassium 4.4 mmol/L (3.5-5.5)
[2019-10-14 18:43] LABS: INR <0.92 (0.90-1.11); Prothrombin Time <9.9 sec (9.9-11.9)
== END | disposition home or self-care (01) ==
LOC: LABWHC1 11:28
PROVIDERS: ATTEND Orthopaedic Surgery
DX: Z01.818 Encounter for other preprocedural examination (principal); M17.12 Unilateral primary osteoarthritis, left knee
CPT/HCPCS: 36415; 80051; 85025; 85610

== ENCOUNTER 2019-10-27 08:31 | Day surgery (SDC) | payer OTHER ==
[2019-10-20 09:23] VITALS: BMI 39.9
--- NOTE | 2019-10-24 13:43 | HP ---
HISTORY AND PHYSICAL CHIEF COMPLAINT: Left knee pain. HISTORY OF PRESENT ILLNESS: The patient is a 49-year-old male who presents with progressive left knee pain secondary to osteoarthrosis over the past several years. It has worsened recently. He takes Lostine intermittently. He has tried previous injections and has had a previous arthroscopy. PAST MEDICAL HISTORY: Significant for arthritis. PAST SURGICAL HISTORY: Significant for right total knee arthroplasty in addition to left knee arthroscopy. CURRENT MEDICATIONS: Lostine. ALLERGIES: He denies drug allergies. FAMILY HISTORY: Noncontributory. SOCIAL HISTORY: Negative for current tobacco or alcohol use. REVIEW OF SYSTEMS: 16 point review of systems otherwise reviewed and is noncontributory. PHYSICAL EXAMINATION: On examination, the patient is approximately 5 foot 9, 257 pounds of endomorphic habitus. HEENT exam is nonfocal. NECK: Supple. He has painless passive motion of his left hip. Straight leg raise is negative. Active motion left knee -10 to 115 degrees of flexion. He has mild effusion. He is tender about the medial joint line. He has genu varum alignment. Collaterals are stable, Latricia is negative. Distal neurovascular appears intact in the left lower extremity. Weightbearing notch, lateral and Merchant views of the left knee obtained in the office show severe medial compartment narrowing. IMPRESSION: Left knee severe medial compartment osteoarthrosis. RECOMMENDATIONS: I talked to the patient at length regarding his condition along with treatment options. At this point, he remains quite symptomatic because of pain related to his osteoarthrosis despite conservative measures. After thorough discussion, he opts to proceed with surgery. We will plan to proceed with left total knee arthroplasty. Risks and benefits were discussed at length in layman's terms. We will institute DVT prophylaxis postoperatively. MMODL / IJN: [id number] /
[~2019-10-27 08:31] MED LIST changes: +DEXAMETHASONE SOD PHOSPHATE 10 MG/ML 1 ML VIAL IV ONE; +LIDOCAINE 1% (10MG/ML) FOR IV START INTRADERMA PRN; +MIDAZOLAM 2 MG/2 ML VIAL IV PRN; +ONDANSETRON 4 MG/2 ML VIAL IVP ONE
[2019-10-27] MEDS: LACTATED RINGERS 1,000 ML IV SCH (09:16)
[2019-10-27] MEDS: fentaNYL (PF) 50 MCG/ML 2 ML AMP IVP PRN ×3 (09:43→13:40)
[2019-10-27] MEDS ORDERED: TRANEXAMIC ACID 1,000 MG/10 ML VIAL ONE (10:42)
[2019-10-27] MEDS ORDERED: PROPOFOL 10 MG/ML 20 ML VIAL IV ONE (10:42)
[2019-10-27] MEDS ORDERED: MIDAZOLAM 2 MG/2 ML VIAL ONE (10:42)
[2019-10-27] MEDS ORDERED: SODIUM CHLORIDE 0.9% 100 ML BAG ONE (10:42)
[2019-10-27] MEDS ORDERED: LIDOCAINE 1% INJ 10MG/ML (20 ML MDV) ONE (10:42)
[2019-10-27] MEDS ORDERED: KETAMINE 10 MG/ML 20 ML VIAL ONE (10:42)
[2019-10-27] MEDS ORDERED: fentaNYL (PF) 50 MCG/ML 2 ML AMP ONE (10:42)
[2019-10-27] MEDS ORDERED: HYDROmorphone (PF) 1 MG/ML ONE (10:42)
[2019-10-27] MEDS ORDERED: ceFAZolin 3,000 MG in SODIUM CHLORIDE 0.9% IRRIGATIO 3,000 ML IRRIGATION ONE (11:24)
[2019-10-27] MEDS ORDERED: HYDROcodone/APAP 10-325MG 1 EACH TAB PO PRN (12:48)
[2019-10-27] MEDS ORDERED: ONDANSETRON 4 MG/2 ML VIAL IVP PRN (12:48)
[2019-10-27] MEDS ORDERED: MAGNESIUM HYDROXIDE 2,400 MG/10 ML CUP PO PRN (12:48)
[2019-10-27] MEDS ORDERED: HYDROmorphone 0.5 MG/0.5 ML SYRINGE IVP PRN (12:48)
[2019-10-27] MEDS ORDERED: traMADol 50 MG TAB PO PRN (12:48)
[2019-10-27] MEDS ORDERED: ACETAMINOPHEN TAB 325 MG TAB PO PRN (12:48)
[2019-10-27] MEDS ORDERED: NALOXONE 0.4 MG/ML 1 ML VIAL IV PRN (12:48)
[2019-10-27] MEDS ORDERED: HYDROmorphone 1 MG/ML 1 ML SYRINGE IVP PRN (12:48)
[2019-10-27] MEDS ORDERED: ROPIVACAINE 0.2%-NS ON-Q PUMP 1,090 MG, EMPTY PAIN BALL 1 EACH MISCELLANE PRN (13:15)
--- NOTE | 2019-10-27 13:17 | P.OP ---
Date of Procedure: 10/27/19 Preoperative Diagnosis: Left knee severe tricompartmental osteoarthrosis Postoperative Diagnosis: Same Procedure(s) Performed: Left total knee arthroplastycementedcruciate retaining Implants: Depuy Attune size 7 cemented femoral component, size 7 cemented tibial component, 9 mm articular surface, 38 mm cemented patellar component. This is a cruciate retaining implant. Anesthesia: regional, local, spinal Surgeon: Darshan Pete Fireworks Display Specialist #1: Edil Zaldivar Estimated Blood Loss (ml): 50 Pathology: other (Bone fragments) Condition: stable Disposition: PACU Indications for Procedure: The patient is a 49-year-old male who presents with progressive left knee pain secondary to osteoarthrosis despite conservative measures. He opted to proceed with surgery. Operative risks to include infection, neurovascular injury, dev elopment of blood clots, possible fracture, possible instability, possible component loosening and need for subsequent procedures was discussed. Informed consent was obtained. Operative Findings: As below Description of Procedure: The patient was brought to the operating room, and after induction of spinal anesthesia the left lower extremity was prepped and draped in a normal fashion. The tourniquet was inflated to 270 mmHg. A longitudinal incision extending 3 finger breaths above the superior pole of the patella extending to the medial aspect the tibial tubercle was then made. The skin and subcutaneous tissues were divided sharply. Electrocautery was used for hemostasis. A medial parapatellar arthrotomy was then performed. The medial soft tissues to include the superficial and deep portions of the medial collateral ligament as well as the medial hamstring tendons were elevated subperiosteally. The proximal medial tibia osteophytes were carefully removed. The patella was everted. The knee was flexed. A portion of the retropatellar fat pad was excised sharply. The anterior cruciate ligament was sacrificed. A starting hole was made in the distal femur 1 cm anterior to the posterior cruciate origin. An intramedullary femoral guide was gently inserted planning on 5 valgus distal cut with 9 mm distal resection. The cutting block was pinned in place. The distal cut was then made. The posterior referencing sizing guide was utilized. 3 of external rotation was built into the system and verified off the trans- epicondylar axis and the posterior condyles. I felt size 7 was most appropriate. The cutting block was pinned in place. The anterior, posterior, and chamfer cuts were then made. The bone fragments were removed. A sulcus cut was then made with the appropriate guide. The trial size 7 femoral component was then placed and was fully seated. There was good anterior to posterior and medial to lateral fit. The distal peg holes were then drilled. The trial component was then removed. Attention was then paid towards preparing the proximal tibia. An extra medullary guide was utilized in line with the tibial shaft and second metatarsal distally. A 7 posterior slope was planned. I planned on 2 mm resection from the medial compartment. The cutting block was pinned in place. The proximal tibial cut was then made. The bone was removed in one fragment. The remnants of the medial and lateral menisci were excised the capsule junction with electrocautery. The tibia sized most appropriately at size 7. The posterior osteophytes off the distal femur were carefully removed with a curved osteotome. The trial tibial and femoral components were placed along with a 9 millimeters articular surface. I was able to obtain full flexion and extension with good stability with varus and valgus stress. After several flexion and extension cycles, the tibial rotation was marked with electrocautery in line with the medial one third of the tibial tubercle. Attention was then paid towards preparing the patella. A patella reamer was utilized taking this down to 14 mm of bone stock. A good flush cut was made. The patella sized most appropriately at 38 millimeters. The peg holes were then drilled. The trial component was placed. The knee was taken through a range of motion. I had good patellofemoral tracking with no hands technique. The trial components were then removed. The tibia was prepared in the appropriate rotation with appropriate drill and keel punch. The flexion and extension gaps were checked and felt to be symmetric. The posterior soft tissues were injected with ropivacaine. The bony surfaces were prepared with pulsatile lavage and dried. The deep tibial component was then cemented in place and was fully seated. Excess cement was removed. The femoral component was cemented in place and was fully seated. Again excess cement was removed. The trial 9 millimeters surface was then inserted in the knee was put in full extension. The patella component was cemented in place. After the cement had sufficiently hardened, the knee was again taken through a range of motion. Again there was good stability in flexion and extension with varus and valgus stress. The trial articular surface was then removed. The final articular surface was placed and was impacted. Care was taken to avoid any soft tissue interposition. Pulsatile lavage was again utilized. The tourniquet was deflated with approximately 80 minutes total tourniquet time. There was minimal drainage therefore a deep drain was not placed. The medial parapatellar arthrotomy was then closed with #2 Ethibond suture. The subcutaneous tissues were reapproximated interrupted 2-0 Vicryl sutures. The skin was reapproximated with 3-0 subarticular strata fix suture. Skin tape and adhesive was applied. A sterile dressing was applied. The patient was then awoken from sedation and transferred to recovery room in good condition. Blood loss was estimated at 50 milliliters. No complications were incurred. Sponge and needle counts were correct at the end the case. Matt JENNINGS assisted during the major components this case to include exposure, bone resection, and implantation.
[2019-10-27] MEDS ORDERED: LACTATED RINGERS 1,000 ML IV ONE ×2 (13:45)
--- NOTE | 2019-10-27 14:05 | XR ---
EXAMINATION TYPE: XR knee limited LT DATE OF EXAM: 10/27/2019 CLINICAL HISTORY: Left knee pain and arthritis status post total knee replacement. TECHNIQUE: Portable AP and crosstable lateral views of the left knee are obtained immediately postop eratively. COMPARISON: None FINDINGS: Metallic hardware from total left knee arthroplasty is seen and appears satisfactory in al ignment and position. There is evidence of recent surgery with diffuse subcutaneous gas and soft tis stacie swelling noted. IMPRESSION: METALLIC HARDWARE FROM TOTAL LEFT KNEE ARTHROPLASTY IS SATISFACTORY IN ALIGNMENT.
[2019-10-27] MEDS: HYDROmorphone 0.5 MG/0.5 ML SYRINGE IVP PRN ×2 (15:00→15:16)
[2019-10-27] MEDS: ceFAZolin 3 GM in SODIUM CHLORIDE 0.9% 100 ML IVPB SCH (18:21)
[2019-10-27 19:31] VITALS: RESP 16
[2019-10-27] MEDS: SENNOSIDES-DOCUSATE SODIUM 1 EACH TAB PO SCH ×2 (20:14→20:17)
[2019-10-27] MEDS: HYDROcodone/APAP 10-325MG 1 EACH TAB PO PRN (20:15)
[2019-10-28] MEDS: LACTATED RINGERS 1,000 ML IV SCH (01:48)
[2019-10-28] MEDS: ceFAZolin 3 GM in SODIUM CHLORIDE 0.9% 100 ML IVPB SCH (02:03)
[2019-10-28] MEDS: HYDROcodone/APAP 10-325MG 1 EACH TAB PO PRN ×2 (02:03→07:25)
[2019-10-28 02:22] VITALS: TEMP 98.1
--- NOTE | 2019-10-28 07:07 | P.ANPRN ---
Procedure Note - Anesthesia - Nerve Block Performed Left Adductor Canal Infusion Time Out Performed: No Date of Procedure: 10/27/19 Procedure Start Time: : Procedure Stop Time: 10:40 Location of Patient: PreOp Indication: Acute Post-Operative Pain, Requested by Surgeon Specifically requested for management of pain by : Darshan Pete Sedation Type: Sedate with meaningful contact maintained Preparation: Sterile Prep, Sterile Dressing Position: Supine Catheter Depth at Skin (cm): 6 Catheter: Indwelling Needle Types: On-Q Needle Gauge: 20 Ultrasound used to visualize needle placement: Yes Ultrasound used to observe medication spread: Yes Injectate: 0.5% Ropivacaine (see comment for volume) Blood Aspirated: No Pain Paresthesia on Injection Noted: No Resistance on Injection: Normal Image Stored and Saved: Yes Events: Uneventful and Well Tolerated (0.5% 15cc Ropicacaine)
--- NOTE | 2019-10-28 07:12 | P.PN ---
Progress Note - Text Progress Note Date: 10/28/19 Patient seen and examined. POD #1 s/p let total knee replacement. Patient resting in bed with 2/10 pain. Patient reports ambulation without difficulty. No motor loss in the left lower extremity. Patient denies fever, chills, parathesias, headache, chest pain, SOB. Catheter site is clean, dry, intact, and without erythema. Continue infusion at 8 cc/hr.
[2019-10-28 07:27] VITALS: BP 106/63; PULSE 76
[2019-10-28 08:11] LABS: Basophils % (A) 0 %; Eosinophils # (A) 0.1 k/uL (0-0.7); Eosinophils % (A) 1 %; HCT 33.7 % (39.0-53.0); HGB 10.2 gm/dL (13.0-17.5); Hypochromasia Marked; Lymphocytes # (A) 2.5 k/uL (1.0-4.8); Lymphocytes % (A) 19 %; MCH 23.8 pg (25.0-35.0); MCHC 30.2 g/dL (31.0-37.0); MCV 78.8 fL (80.0-100.0); Mean Platelet Volume 8.3; Monocytes % (A) 8 %; Neutrophils # (A) 8.9 k/uL (1.3-7.7); Neutrophils % (A) 70 %; Platelet Count 282 k/uL (150-450); RBC 4.28 m/uL (4.30-5.90); RDW 15.9 % (11.5-15.5); WBC 12.7 k/uL (3.8-10.6)
[2019-10-28] MEDS ORDERED: RIVAROXABAN 10 MG TAB PO SCH (09:00)
--- NOTE | 2019-10-28 09:53 | P.PN ---
Subjective Progress Note Date: 10/28/19 Principal diagnosis: status post left total knee arthroplasty patient evaluated at bedside, is resting comfortably. He has done well with therapy. He notes some pain, but it is controlled with current medication. Denies any chest pain or shortness of breath. Objective - Vital Signs Vital signs: Vital Signs Temp 98.1 F 10/28/19 07:00 Pulse 76 10/28/19 07:00 Resp 16 10/28/19 07:00 BP 106/63 10/28/19 07:00 Pulse Ox 99 10/28/19 07:00 Intake & Output 10/27/19 10/28/19 10/28/19 18:59 06:59 18:59 Intake Total 1451 Output Total 50 700 Balance 1401 -700 Weight 125.6 kg Intake: IV 1451 Output: Urine 700 Estimated Blood Loss 50 Other: Voiding Method Urinal # Voids 1 - Exam Left lower extremity: Incision is clean, dry, and intact. The exofin fusion tape is in good condition. There is minimal soft tissue swelling and ecchymosis surrounding the medial and lateral aspects of the incision. Calf is soft, no tenderness with palpation. Plantar flexion, dorsiflexion, EHL, FHL are intact. Sensory exam to light touch throughout the extremity is intact, dorsal pedis pulses 2+. - Labs CBC & Chem 7: 10/28/19 07:20 Labs: Abnormal Lab Results - Last 24 Hours (Table) 10/28/19 Range/Units 07:20 WBC 12.7 H (3.8-10.6) k/uL RBC 4.28 L (4.30-5.90) m/uL Hgb 10.2 L (13.0-17.5) gm/dL Hct 33.7 L (39.0-53.0) % MCV 78.8 L (80.0-100.0) fL MCH 23.8 L (25.0-35.0) pg MCHC 30.2 L (31.0-37.0) g/dL RDW 15.9 H (11.5-15.5) % Neutrophils # 8.9 H (1.3-7.7) k/uL Assessment and Plan Assessment: Status post left total knee arthroplasty Plan: Pain control, plan for discharge home on oral medication Wound care instructions discussed GI and DVT prophylaxis, Eliquis after discharge for 2 weeks Medical recommendations Therapy and nursing after discharge Plan for discharge home today Time with Patient: Less than 30
--- NOTE | 2019-10-28 09:55 | P.DS ---
Providers Date of admission: 10/27/2019 Expected date of discharge: 10/28/19 Attending physician: Darshan Pete Consults: 10/27/19 12:48 Consult Physician Routine Consulting Provider: Montserrat Madera Consult Reason/Comments: medical management Do you want consulting provider notified?: Yes Primary care physician: Stated None Hospital Course: Date of admission: 10/27/2019 Date of discharge: 10/28/2019 Admission diagnosis: Status post left total knee arthroplasty Discharge diagnosis: Same Attending physician: Dr. Pete Surgical procedures: Left total knee arthroplasty Brief history: Patient is a 49-year-old male with a history of progressive primary left knee osteoarthritis. At this point patient has failed conservative treatment measures and has opted to proceed with a elective left total knee arthroplasty. Hospital course: Details of patient's surgery can be found in operative report. Patient tolerated the procedure well and was subsequently transported to [facility]. Patient's orthopeidc and medical care was provided daily. Patient had daily laboratory tests performed for evaluation of overall blood counts. Patient had daily physical therapy to include strengthening range of motion as well as education with walker ambulation. Patient was treated with Xarelto for their postoperative DVT prophylaxis during their inpatient stay. Patient was noted to have a relatively uneventful postoperative course. Patient reported satisfactory pain control with oral pain medications by postoperative day 0. Patient showed satisfactory progress with physical therapy. Patient moved steadily through the program and had no difficulty meeting the goals by postoperative day 1. Given patient's otherwise satisfactory course and having met physical therapy goals, plan is to discharge patient home on postoperative day 1. Discharge condition/disposition: Patient will be discharged home in stable condition. Discharge medications: Instructions are given on resumption of patient's normal daily medications per primary care recommendation, in addition patient will be prescribed [place] 10 mg/325 mg, tramadol 50 mg, Colace 100 mg. Discharge instructions: 1. Wound care and infection precautions, keep incision dry and covered while showering, no lotions, creams, moisturizers. No soaking, tubs, pools, hottubs. Do not scrub over the incision. 2. Weight-bear as tolerated with walker / cane until follow-up. 3. Ice and elevate when necessary. Do not exceed 20 minutes per hour with ice pack. 4. Utilize compression sleeve until seen at first follow up appointment. 5. Visiting nursing care. 6. Home physical therapy including home CPM. 7. Pain meds and anticoagulants per prescription. 8. Pain medication has potential to cause constipation. Increase oral fluid and fiber intake. Contact primary care provider if you have not had a bowel movement within 48 hours after discharge 9. No anti-inflammatory medication until discussed at first post operative visit, this including Motrin, Aleve, Mobic, Diclofenac. 10. Follow up in office at 2 weeks postop with Matt Zaldivar PA-C 11. Follow up with your primary care doctor 7-10 days after discharge. 12. Contact [facility] with any questions, . Procedures: Left total knee arthroplasty Patient Condition at Discharge: Good Plan - Discharge Summary Discharge Rx Participant: Yes New Discharge Prescriptions: New Docusate [Colace] 100 mg PO DAILY #30 capsule Hydrocodone/Acetaminophen [[place] 10-325] 1 - 2 each PO Q6H PRN #56 tab PRN Reason: Pain traMADol HCl [Ultram] 50 mg PO Q6H PRN #28 tab PRN Reason: Pain No Action Sinex Nasal [place] 1 spray EA NOSTRIL BID Hydrocodone/Acetaminophen [[place] 7.5-325] 1 tab PO Q6HR PRN PRN Reason: Pain Discharge Medication List Sinex Nasal [place] 1 spray EA NOSTRIL BID 08/06/19 [History] Hydrocodone/Acetaminophen [[place] 7.5-325] 1 tab PO Q6HR PRN 10/20/19 [History] Docusate [Colace] 100 mg PO DAILY #30 capsule 10/28/19 [Rx] Hydrocodone/Acetaminophen [[place] 10-325] 1 - 2 each PO Q6H PRN #56 tab 10/28/19 [Rx] traMADol HCl [Ultram] 50 mg PO Q6H PRN #28 tab 10/28/19 [Rx] Follow up Appointment(s)/Referral(s): Edil Zaldivar PAC [PHYSICIAN BUSINESS DEVELOPMENT OFFICER] - 11/11/19 2:30 pm Activity/Diet/Wound Care/Special Instructions: Orthopedic Discharge Instructions: 1. Wound care and infection precautions, keep incision dry and covered while showering, no lotions, creams, moisturizers. No soaking, pools, hot tubs. Do not scrub over incision. 2. Weight-bear as tolerated with walker / cane until follow-up. 3. Ice and elevate when necessary. Do not exceed 20 minutes per hour with ice pack. 4. Utilize compression sleeve until seen at first follow up appointment. 5. Pain meds and anticoagulants per prescription. 6. Pain medication has potential to cause constipation. Increase oral fluid and fiber intake. Contact primary care provider if you have not had a bowel movement within 48 hours after discharge. 7. No anti-inflammatory medication until discussed at first post operative visit, this including Motrin, Aleve, Mobic, Diclofenac. 8. Follow up in office at 2 weeks postop with Matt Zaldivar PA-C 9. Follow up with your primary care doctor 7-10 days after discharge. 10. Contact [facility] with any questions, . Discharge Disposition: HOME WITH HOME HEALTH SERVICES
--- NOTE | 2019-10-28 12:00 | P.CONS ---
History of Present Illness - Reason for Consult Leukocytosis - History of Present Illness Patient is a pleasant 49-year-old male is admitted for total left knee arthroplasty patient is postoperative day one doesn't have a Cash catheter doesn't have any signs or symptoms of infection does have some leukocytosis denied any fever chills and dysuria. Patient did pass gas patient is being discharged today Review of Systems REVIEW OF SYSTEMS: CONSTITUTIONAL: No fever, no malaise, no fatigue. HEENT: No recent visual problems or hearing problems. Denied any sore throat. CARDIOVASCULAR: No chest pain, orthopnea, PND, no palpitations, no syncope. PULMONARY: No shortness of breath, no cough, no hemoptysis. GASTROINTESTINAL: No diarrhea, no nausea, no vomiting, no abdominal pain. NEUROLOGICAL: No headaches, no weakness, no numbness. HEMATOLOGICAL: Denies any bleeding or petechiae. GENITOURINARY: Denies any burning micturition, frequency, or urgency. MUSCULOSKELETAL/RHEUMATOLOGICAL: Some pain and surgical site area and patient has a pain management device ENDOCRINE: Denies any polyuria or polydipsia. The rest of the 14-point review of systems is negative. Past Medical History Past Medical History: Osteoarthritis (OA) Additional Past Medical History / Comment(s): SINUS- ALLERGIES , WAS TREATED FOR POISON RASHMI SEPTEMBER 2019- PATIENT STATES NO DRAINAGE AND WAS TREATED,STATES HE DID NOT HAVE THE RASH ON HIS LEGS History of Any Multi-Drug Resistant Organisms: None Reported Past Surgical History: Orthopedic Surgery Additional Past Surgical History / Comment(s): BILATERAL ARTHROSCOPIC KNEE SURGERY, TOTAL RIGHT KNEE; UMBILIAL HERNIA REPAIR Past Anesthesia/Blood Transfusion Reactions: No Reported Reaction Past Psychological History: No Psychological Hx Reported Smoking Status: Never smoker Past Alcohol Use History: Occasional Additional Past Alcohol Use History / Comment(s): STARTED SMOKING 19 QUIT 2004 SMOKED 1/2-1PPD Past Drug Use History: None Reported - Past Family History Mother Family Medical History: No Reported History Medications and Allergies Home Medications Medication Instructions Recorded Confirmed Type Sinex Nasal [place] 1 spray EA NOSTRIL BID 08/06/19 10/27/19 History Hydrocodone/Acetaminophen [[place] 1 tab PO Q6HR PRN 10/20/19 10/27/19 History 7.5-325] Docusate [Colace] 100 mg PO DAILY #30 capsule 10/28/19 Rx Hydrocodone/Acetaminophen [[place] 1 - 2 each PO Q6H PRN #56 tab 10/28/19 Rx 10-325] traMADol HCl [Ultram] 50 mg PO Q6H PRN #28 tab 10/28/19 Rx Allergies Allergy/AdvReac Type Severity Reaction Status Date / Time No Known Allergies Allergy Verified 10/20/19 08:28 Physical Exam Vitals: Vital Signs Temp Pulse Pulse Resp BP Pulse Ox 10/28/19 07:00 98.1 F 76 16 106/63 99 10/28/19 01:15 98.1 F 83 16 118/77 98 10/27/19 18:47 97.6 F 87 16 118/77 95 10/27/19 17:48 97.8 F 89 18 109/68 96 10/27/19 16:30 97.7 F 85 18 123/79 98 10/27/19 16:00 16 129/65 97 10/27/19 15:30 76 16 133/76 98 10/27/19 15:00 78 16 127/65 97 10/27/19 14:30 79 16 129/60 97 10/27/19 13:57 80 16 131/66 96 10/27/19 13:42 77 16 129/84 96 10/27/19 13:28 70 16 120/69 97 10/27/19 13:13 96.8 F L 72 16 138/67 97 Intake and Output 10/27/19 10/28/19 10/28/19 22:59 06:59 14:59 Intake Total 350 Output Total 700 Balance -350 Intake: IV 350 Output: Urine 700 Other: Voiding Method Urinal # Voids 1 Weight 125.6 kg REVIEW OF SYSTEMS: CONSTITUTIONAL: No fever, no malaise, no fatigue. HEENT: No recent visual problems or hearing problems. Denied any sore throat. CARDIOVASCULAR: No chest pain, orthopnea, PND, no palpitations, no syncope. PULMONARY: No shortness of breath, no cough, no hemoptysis. GASTROINTESTINAL: No diarrhea, no nausea, no vomiting, no abdominal pain. NEUROLOGICAL: No headaches, no weakness, no numbness. HEMATOLOGICAL: Denies any bleeding or petechiae. GENITOURINARY: Denies any burning micturition, frequency, or urgency. MUSCULOSKELETAL/RHEUMATOLOGICAL: Denies any joint pain, swelling, or any muscle pain. ENDOCRINE: Denies any polyuria or polydipsia. The rest of the 14-point review of systems is negative. Results CBC & Chem 7: 10/28/19 07:20 Labs: Abnormal Lab Results - Last 24 Hours (Table) 10/28/19 Range/Units 07:20 WBC 12.7 H (3.8-10.6) k/uL RBC 4.28 L (4.30-5.90) m/uL Hgb 10.2 L (13.0-17.5) gm/dL Hct 33.7 L (39.0-53.0) % MCV 78.8 L (80.0-100.0) fL MCH 23.8 L (25.0-35.0) pg MCHC 30.2 L (31.0-37.0) g/dL RDW 15.9 H (11.5-15.5) % Neutrophils # 8.9 H (1.3-7.7) k/uL Assessment and Plan Plan: -leukocytosis: Reactive sclerae to surgery no evidence of infection no further testing is asked at this time -Left knee arthroplasty: Patient is on aspirin 325 mg twice a day patient was asked to hold off is 81 mg of aspirin until his tongue with this DVT prophylaxis -Obesity Patient can be discharged from medical perspective and discharge medication reconciliation was reviewed
== END 2019-10-28 11:38 | disposition home health service (06) ==
LOC: OR 08:31 → 4SSUR 13:10 → OR 10-28 11:38
PROVIDERS: ATTEND Orthopaedic Surgery
DX: M17.12 Unilateral primary osteoarthritis, left knee (principal); D72.829 Elevated white blood cell count, unspecified; E78.5 Hyperlipidemia, unspecified; E66.9 Obesity, unspecified; Z96.651 Presence of right artificial knee joint; Z87.891 Personal history of nicotine dependence; Z79.82 Long term (current) use of aspirin; Z79.891 Long term (current) use of opiate analgesic; Z79.899 Other long term (current) drug therapy; Z98.890 Other specified postprocedural states; Z68.41 Body mass index [BMI] 40.0-44.9, adult
CPT/HCPCS: 27447; 97161; 64448; 76942; 85025; 88300; 73560; C1713; C1776; J2250; J0171; J1100; J0690 ×3; J2405; J2001; J3010; J1885; J1170 ×2; J2795 ×2; J2704; J0735

== ENCOUNTER → 2020-11-25 | Outpatient (CLI) | payer OTHER ==
--- NOTE | 2020-11-25 10:27 | XR ---
Lumbosacral spine HISTORY: Low back pain 5 views of lumbosacral spine There is loss of disc height at L5-S1. Lumbar vertebral bodies show preserved height, alignment, and bone mineralization, there is no evidence spondylolysis. Sclerosis is present in the posterior elemen ts of the lower lumbar spine. Mild anterior wedging of T12 may be physiologic. IMPRESSION: Degenerative disc disease and facet arthropathy.
== END | disposition home or self-care (01) ==
LOC: RADXRYALE 10:07
PROVIDERS: ATTEND Physician Assistant
DX: M51.36 Other intervertebral disc degeneration, lumbar region (principal); M47.816 Spondylosis without myelopathy or radiculopathy, lumbar region
CPT/HCPCS: 72110

== ENCOUNTER → 2021-02-03 | Outpatient (CLI) | payer OTHER ==
--- NOTE | 2021-02-04 00:50 | MR ---
EXAMINATION TYPE: MR lumbar spine wo con DATE OF EXAM: 02/03/2021 COMPARISON: None HISTORY: Low back pain for several years Multiplanar multiecho imaging of the lumbar spine without contrast. Lumbar vertebra have normal alignment. There are somewhat rounded areas of increased signal in the jesus mbar vertebral bodies at the levels of L3 L2 and T12 consistent with fatty marrow replacement. There is no significant compression fracture. There is very slight biconcave deformity of the lumbar verteb ral bodies that could relate to some degree of osteomalacia. There is no lumbar paraspinal mass. Ther e is no spinal stenosis. There is no evidence of lumbar disc herniation. The neural foramina are fair ly well-maintained. The sacroiliac joints are intact. IMPRESSION: Minimal biconcave changes in the lumbar vertebral bodies could relate to some osteomalacia. No spinal stenosis. No evidence of any significant lumbar disc herniation. No acute fracture.
== END | disposition home or self-care (01) ==
LOC: RADMRIMAIN 15:33
PROVIDERS: ATTEND Family Medicine
DX: M54.16 Radiculopathy, lumbar region (principal); M54.50 Low back pain, unspecified
CPT/HCPCS: 72148

== ENCOUNTER 2022-05-14 22:16 | Emergency (ER) | payer OTHER ==
[2022-05-14] MEDS ORDERED: KETOROLAC 15 MG/ML 1 ML VIAL IM STA (22:40)
[2022-05-14] MEDS ORDERED: HYDROcodone/APAP 7.5-325MG 1 EACH TAB PO ONE (22:40)
[2022-05-14] MEDS ORDERED: LIDOCAINE 1% INJ 10MG/ML (30 ML VIAL-PF) SQ ONE (22:57)
[2022-05-14] MEDS ORDERED: DIPH,PERTUS(ACELL)TETVAC-LF 0.5 ML VIAL IM ONE (22:57)
[2022-05-14] MEDS ORDERED: LIDOCAINE/EPINEPHR/TETRACAINE 5 ML BOTTLE TOPICAL ONE ×2 (23:03→23:05)
--- NOTE | 2022-05-14 23:04 | ED ---
Lower Extremity Injury HPI - General Chief Complaint: Extremity Injury, Lower Stated Complaint: right leg injury Time Seen by Provider: 05/14/22 22:30 Source: patient, RN notes reviewed Mode of arrival: ambulatory Limitations: no limitations - History of Present Illness Initial Comments: This is a 51-year-old male who presents to the emergency department for a laceration to the right lower extremity. Patient states that he cut his right yen on a piece of metal today at work. Pain is fairly severe at this time. Unsure when his last tetanus vaccine was. Denies any fevers, chills, sore throat, cough, dyspnea, chest pain, palpitations, abdominal pain, nausea, vomiting, diarrhea, back pain, or headaches. MD Complaint: leg injury - Related Data Home Medications Medication Instructions Recorded Confirmed Sinex Nasal [place] 1 spray EA NOSTRIL BID 08/06/19 10/27/19 Hydrocodone/Acetaminophen [[place] 1 tab PO Q6HR PRN 10/20/19 10/27/19 7.5-325] Previous Rx's Medication Instructions Recorded Docusate [Colace] 100 mg PO DAILY #30 capsule 10/28/19 Hydrocodone/Acetaminophen [[place] 1 - 2 each PO Q6H PRN #56 tab 10/28/19 10-325] traMADol HCl [Ultram] 50 mg PO Q6H PRN #28 tab 10/28/19 Allergies Allergy/AdvReac Type Severity Reaction Status Date / Time No Known Allergies Allergy Verified 05/14/22 22:25 Review of Systems ROS Statement: Those systems with pertinent positive or pertinent negative responses have been documented in the HPI. ROS Other: All systems not noted in ROS Statement are negative. Past Medical History Past Medical History: Osteoarthritis (OA) History of Any Multi-Drug Resistant Organisms: None Reported Past Surgical History: Orthopedic Surgery Additional Past Surgical History / Comment(s): BILATERAL ARTHROSCOPIC KNEE SURGERY, TOTAL RIGHT KNEE; UMBILIAL HERNIA REPAIR Past Anesthesia/Blood Transfusion Reactions: No Reported Reaction Past Psychological History: No Psychological Hx Reported Smoking Status: Never smoker Past Alcohol Use History: Occasional Past Drug Use History: None Reported - Past Family History Mother Family Medical History: No Reported History General Exam Limitations: no limitations General appearance: alert, in no apparent distress Head exam: Present: atraumatic, normocephalic, normal inspection Respiratory exam: Present: normal lung sounds bilaterally. Absent: respiratory distress, wheezes, rales, rhonchi, stridor Cardiovascular Exam: Present: regular rate, normal rhythm, normal heart sounds. Absent: systolic murmur, diastolic murmur, rubs, gallop, clicks Extremities exam: Present: other (4 cm horizontal laceration to the anterior aspect of the right yen. No active bleeding.) Neurological exam: Present: alert, oriented X3, CN II-XII intact Psychiatric exam: Present: normal affect, normal mood Course Vital Signs 05/14/22 05/15/22 22:25 00:24 Temperature 98 F 98.2 F Pulse Rate 99 82 Respiratory 18 16 Rate Blood Pressure 161/83 130/70 O2 Sat by Pulse 98 98 Oximetry Procedures - Laceration Laceration #1 Consent Obtained: verbal consent Indication: laceration Site: other (Right yen) Size (cm): 5 Description: linear Depth: simple, single layer Anesthetic Used: lidocaine 1% Anesthesia Technique: local infiltration Amount (mls): 5 Type of Sutures: nylon Size of Sutures: 4-0 Number of Sutures: 4 Technique: simple, interrupted Medical Decision Making - Medical Decision Making This is a 51-year-old male who presents to the emergency department for a laceration. Was pt. sent in by a medical professional or institution? @ -No Did you speak to anyone other than the patient for history? @ -No Did you review nursing and triage notes? @ -Yes, and I agree, it is accurate with regards to the patient's symptoms. Were old charts reviewed? @ -No Differential Diagnosis? @ -Not applicable What testing was considered but not performed? (CT, X-rays, U/S, labs)? Why? @ -None What meds were considered but not given? Why? @ -None Did you discuss the management of the patient with other professionals? @ -No Did you reconcile home meds? @ -No Was smoking cessation discussed for >3mins.? @ -No Was critical care preformed (if so, how long)? @ -No Were there social determinants of health that impacted care today? How? (Homelessness, low income, unemployed, alcoholism, drug addiction, trans portation, low edu. Level, literacy, decrease access to med. care, [facility], rehab)? @ -No Was there de-escalation of care discussed even if they declined? (Discuss DNR or withdrawal of care, Hospice)? @ -No What co-morbidities impacted this encounter? (DM, HTN, Smoking, COPD, CAD, Cancer, CVA, Hep., AIDS, mental health diagnosis, sleep apnea, morbid obesity)? @ -None Was patient admitted / discharged? @ -Discharged. Patient's tetanus vaccine was updated. Laceration closed with sutures. He is instructed to return here in 7-10 days for suture removal, or follow-up with his primary care provider to have them removed. Advised ibuprofen and Tylenol as needed for pain relief. Undiagnosed new problem with uncertain prognosis? @ -None Drug Therapy requiring intensive monitoring for toxicity (Heparin, Nitro, Insulin, Cardizem)? @ -None Were any procedures done? @ -Laceration repair with sutures. Diagnosis/symptom? @ -Laceration Acute, or Chronic, or Acute on Chronic? @ -Acute Uncomplicated (without systemic symptoms) or Complicated (systemic symptoms)? @ -Uncomplicated Side effects of treatment? @ -None Exacerbation, Progression, or Severe Exacerbation] @ -Not applicable Poses a threat to life or bodily function? @ -No Return precautions reviewed in depth, the patient is instructed to return to the emergency department with any new, worsening, or concerning symptoms. Patient verbalized understanding. This case was discussed in detail with the attending ED physician, Dr. Ge. Presentation, findings, and treatment plan discussed in detail as well. Disposition Clinical Impression: Laceration of right lower leg Disposition: HOME SELF-CARE Instructions (If sedation given, give patient instructions): Care For Your Stitches (ED) Additional Instructions: Return to the emergency department with any new, worsening, or concerning symptoms. Alternate with ibuprofen and Tylenol as needed for pain relief. You can have the sutures removed here in 7-10 days or have them removed by your primary care provider during your appointment next week. Is patient prescribed a controlled substance at d/c from ED?: No Referrals: Gerson Barba DO [Primary Care Provider] - 1-2 days
[2022-05-15] MEDS ORDERED: IBUPROFEN 600 MG STARTER PACK 4 TAB BTL PO STA (00:05)
[2022-05-15] MEDS ORDERED: ACET/COD 300 MG/30 MG STARTER PACK 6 TAB BTL PO STA (00:05)
[2022-05-15 00:24] VITALS: BP 130/70; PULSE 82; RESP 16; TEMP 98.2
== END 2022-05-15 00:24 | disposition home or self-care (01) ==
LOC: EC 22:16
DX: S81.811A Laceration without foreign body, right lower leg, initial encounter (principal); Z23 Encounter for immunization; W26.8XXA Contact with other sharp object(s), not elsewhere classified, initial encounter
CPT/HCPCS: 90715; 12002; 99283; 90471; 96372; J2001; J1885

== ENCOUNTER → 2022-06-11 | Outpatient (CLI) | payer OTHER ==
--- NOTE | 2022-06-12 08:33 | XR ---
EXAMINATION TYPE: XR tibia fibula RT DATE OF EXAM: 06/11/2022 COMPARISON: NONE HISTORY: Soft tissue wound TECHNIQUE: Two views are submitted. FINDINGS: The osseous structures are intact. Postsurgical change involving the knee joint. No destructive jones es. There appears to be a soft tissue ulceration anteriorly near the proximal diaphysis tibia.. IMPRESSION: 1. No acute osseous abnormality.
== END | disposition home or self-care (01) ==
LOC: RADXRMAIN 16:59
PROVIDERS: ATTEND Emergency Medicine
DX: S81.801A Unspecified open wound, right lower leg, initial encounter (principal); Y99.9 Unspecified external cause status

== ENCOUNTER 2022-09-27 05:48 | Emergency (ER) | payer OTHER ==
[2022-09-27 06:07] VITALS: RESP 18; TEMP 98.3
[2022-09-27] MEDS ORDERED: HYDROmorphone 1 MG/ML 1 ML SYRINGE IVP STA (06:20)
[2022-09-27] MEDS ORDERED: ORPHENADRINE 30 MG/ML 2 ML VIAL IVP STA (06:20)
[2022-09-27] MEDS ORDERED: methylPREDNISolone SOD SUCCI 125 MG/2 ML VIAL IV STA (06:20)
[2022-09-27] MEDS ORDERED: KETOROLAC 15 MG/ML 1 ML VIAL IVP STA (06:20)
--- NOTE | 2022-09-27 06:58 | ED ---
Back Pain HPI - General Chief Complaint: Back Pain/Injury Stated Complaint: Lower Back Pain Time Seen by Provider: 09/27/22 06:08 Source: patient, RN notes reviewed Mode of arrival: ambulatory Limitations: no limitations - History of Present Illness Initial Comments: 52-year-old male presents emergency Department with chief complaint of back pain. Patient states he's had on-and-off back issues. Patient states this started yesterday while walking on his house. Patient states that he did not have any electronic injury states it does hurt to move felt like something pulled. Patient has no associated weakness denies any bowel, bladder incontinence or retention or saddle anesthesias. Patient states that pain is an area of he's had before. He denies any dysuria and no fevers or chills no chest pain or shortness breath. - Related Data Home Medications Medication Instructions Recorded Confirmed Sinex Nasal Carter 1 spray EA NOSTRIL BID 08/06/19 10/27/19 Hydrocodone/Acetaminophen [Millen 1 tab PO Q6HR PRN 10/20/19 10/27/19 7.5-325] Previous Rx's Medication Instructions Recorded Docusate [Colace] 100 mg PO DAILY #30 capsule 10/28/19 Hydrocodone/Acetaminophen [Millen 1 - 2 each PO Q6H PRN #56 tab 10/28/19 10-325] traMADol HCl [Ultram] 50 mg PO Q6H PRN #28 tab 10/28/19 Cyclobenzaprine [Flexeril] 10 mg PO TID PRN #15 tab 09/27/22 Ketorolac [Toradol] 10 mg PO Q8HR #15 tab 09/27/22 predniSONE 50 mg PO DAILY #5 tab 09/27/22 Allergies Allergy/AdvReac Type Severity Reaction Status Date / Time No Known Allergies Allergy Verified 09/27/22 06:05 Review of Systems ROS Statement: Those systems with pertinent positive or pertinent negative responses have been documented in the HPI. ROS Other: All systems not noted in ROS Statement are negative. Past Medical History Past Medical History: Osteoarthritis (OA) History of Any Multi-Drug Resistant Organisms: None Reported Past Surgical History: Orthopedic Surgery Additional Past Surgical History / Comment(s): BILATERAL ARTHROSCOPIC KNEE SURGERY, TOTAL RIGHT KNEE; UMBILIAL HERNIA REPAIR Past Anesthesia/Blood Transfusion Reactions: No Reported Reaction Past Psychological History: No Psychological Hx Reported Smoking Status: Never smoker Past Alcohol Use History: Occasional Past Drug Use History: None Reported - Past Family History Mother Family Medical History: No Reported History General Exam Limitations: no limitations General appearance: alert, in no apparent distress Head exam: Present: atraumatic, normocephalic, normal inspection Eye exam: Present: normal appearance, PERRL, EOMI. Absent: scleral icterus, conjunctival injection, periorbital swelling ENT exam: Present: normal exam, normal oropharynx, mucous membranes moist Neck exam: Present: normal inspection, full ROM. Absent: tenderness, meningismus, lymphadenopathy Respiratory exam: Present: normal lung sounds bilaterally. Absent: respiratory distress, wheezes, rales, rhonchi, stridor Cardiovascular Exam: Present: regular rate, normal rhythm, normal heart sounds. Absent: systolic murmur, diastolic murmur, rubs, gallop, clicks GI/Abdominal exam: Present: soft, normal bowel sounds. Absent: distended, tenderness, guarding, rebound, rigid Extremities exam: Present: other (Lower extremity strength equal bilaterally neurovascular intact equal color equal warmth) Back exam: Present: tenderness, muscle spasm, paraspinal tenderness. Absent: full ROM, vertebral tenderness Neurological exam: Present: reflexes normal. Absent: motor sensory deficit Course Vital Signs 09/27/22 06:05 Temperature 98.3 F Pulse Rate 110 H Respiratory 18 Rate Blood Pressure 137/79 O2 Sat by Pulse 98 Oximetry Medical Decision Making - Medical Decision Making Was pt. sent in by a medical professional or institution (, PA, RN FLIGHT, urgent care, hospital, or skilled nursing...) When possible be specific @ -No Did you speak to anyone other than the patient for history (EMS, parent, family, police, friend...)? What history was obtained from this source @ -No Did you review nursing and triage notes (agree or disagree)? Why? @ -I reviewed and agree with nursing and triage notes Were old charts reviewed (outside hosp., previous admission, EMS record, old EKG, old radiological studies, urgent care reports/EKG's, skilled nursing records)? Report findings @ -Reviewed MRI from 2020 Differential Diagnosis (chest pain, altered mental status, abdominal pain women, abdominal pain men, vaginal bleeding, weakness, fever, dyspnea, syncope, headache, dizziness, GI bleed, back pain, seizure, CVA, palpatations, mental health, musculoskeletal)? @ -Differential Back Pain: Strain, zoster, cauda equina syndrome, epidural abscess, vertebral ost eomyelitis, discitis, fracture, subluxation, disc herniation, DJD, spinal stenosis, dissection, AAA, pancreatitis, peptic ulcer disease, pyelonephritis, kidney stone, this is not meant to be an all-inclusive list.e EKG interpreted by me (3pts min.). @ -None X-rays interpreted by me (1pt min.). @ -X-ray lumbar spine shows degenerative changes L5-S1 CT interpreted by me (1pt min.). @ -None done U/S interpreted by me (1pt. min.). @ -None done What testing was considered but not performed or refused? (CT, X-rays, U/S, labs)? Why? @ -None What meds were considered but not given or refused? Why? @ -None Did you discuss the management of the patient with other professionals (professionals i.e. , PA, RN FLIGHT, lab, RT, psych nurse, social science instructor, vocational rehab consultant, teacher, dental officer, major case detective)? Give summary @ -No Was smoking cessation discussed for >3mins.? @ -No Was critical care preformed (if so, how long)? @ -No Were there social determinants of health that impacted care today? How? (Homelessness, low income, unemployed, alcoholism, drug addiction, transportation, low edu. Level, literacy, decrease access to med. care, [facility] [facility], rehab)? @ -No Was there de-escalation of care discussed even if they declined (Discuss DNR or withdrawal of care, Hospice)? DNR status @ -No What co-morbidities impacted this encounter? (DM, HTN, Smoking, COPD, CAD, Cancer, CVA, ARF, Chemo, Hep., AIDS, mental health diagnosis, sleep apnea, morbid obesity)? @ -None Was patient admitted / discharged? Hospital course, mention meds given and route, prescriptions, significant lab abnormalities, going to OR and other pertinent info. @ -discharge patient has a history of chronic back pain with acute exacerbation today. Patient has no red flag symptoms x-rays shows degenerative changes L5- S1. Patient does feel improved after pain medication emergency department. Patient is discharged in stable condition with close follow-up return parameters were discussed. Undiagnosed new problem with uncertain prognosis? @ -No Drug Therapy requiring intensive monitoring for toxicity (Heparin, Nitro, Insulin, Cardizem)? @ -No Were any procedures done? @ -No Diagnosis/symptom? @ -Lumbar back pain Acute, or Chronic, or Acute on Chronic? @ -Acute Uncomplicated (without systemic symptoms) or Complicated (systemic symptoms)? @ -uncomplicated Side effects of treatment? @ -No Exacerbation, Progression, or Severe Exacerbation? @ -Exacerbation Poses a threat to life or bodily function? How? (Chest pain, USA, IA, pneumonia, PE, COPD, DKA, ARF, appy, cholecystitis, CVA, Diverticulitis, Homicidal, Suicidal, threat to staff... and all critical care pts) @ -No Disposition Clinical Impression: Lumbar radiculopathy, Strain of lumbar region Disposition: HOME SELF-CARE Condition: Stable Instructions (If sedation given, give patient instructions): Acute Low Back Pain (ED) Additional Instructions: Please return to the Emergency Department if symptoms worsen or any other concerns. Prescriptions: Cyclobenzaprine [Flexeril] 10 mg PO TID PRN #15 tab PRN Reason: Muscle Spasm predniSONE 50 mg PO DAILY #5 tab Ketorolac [Toradol] 10 mg PO Q8HR #15 tab Is patient prescribed a controlled substance at d/c from ED?: No Referrals: Gerson Barba DO [Primary Care Provider] - 1-2 days Freddie Denise DO [Doctor of Osteopathic Medicine] - 1-2 days Time of Disposition: 07:53
--- NOTE | 2022-09-27 07:33 | XR ---
EXAMINATION TYPE: XR lumbar spine 2 or 3V DATE OF EXAM: 09/27/2022 CLINICAL HISTORY: pain TECHNIQUE: Three views of the lumbar spine are submitted. COMPARISON: Lumbosacral radiograph 11/25/2020, MRI lumbar spine 02/03/2021 FINDINGS: There are 5 lumbar type vertebral bodies identified. The lumbar spine shows satisfactory alignment w ithout evidence of acute fracture or dislocation. Similar anterior wedging of the T12 vertebral body. Mild disc space narrowing with endplate sclerosis and facet arthropathy at L5-S1. The overlying s oft tissue appears unremarkable. IMPRESSION: 1. No acute fracture or dislocation is seen in the lumbar spine. 2. Mild degenerative disc disease and facet arthropathy at L5-S1.
[2022-09-27 08:26] VITALS: BP 134/78; PULSE 87
== END 2022-09-27 08:25 | disposition home or self-care (01) ==
LOC: EC 05:48
DX: S39.012A Strain of muscle, fascia and tendon of lower back, initial encounter (principal); M54.16 Radiculopathy, lumbar region; X50.9XXA Other and unspecified overexertion or strenuous movements or postures, initial encounter; Y92.009 Unspecified place in unspecified non-institutional (private) residence as the place of occurrence of the external cause; Y93.01 Activity, walking, marching and hiking
CPT/HCPCS: 72100; 99284; 96374; 96375 ×3; J2360; J2930; J1170; J1885

== ENCOUNTER 2022-10-07 20:37 | Emergency (ER) | payer OTHER ==
[2022-10-07] MEDS ORDERED: KETOROLAC 15 MG/ML 1 ML VIAL IVP STA (21:47)
[2022-10-07] MEDS ORDERED: ORPHENADRINE 30 MG/ML 2 ML VIAL IVP STA (21:47)
[2022-10-07] MEDS ORDERED: MORPHINE SULFATE 4 MG/ML SYRINGE IVP STA (21:47)
[2022-10-07 22:17] LABS: WBC 32.2 k/uL (3.8-10.6)
[2022-10-07 22:18] LABS: Anisocytosis Slight; Basophils # (A) 0.1 k/uL (0-0.2); Basophils % (A) 0 %; Eosinophils % (A) 0 %; HCT 28.1 % (39.0-53.0); HGB 8.7 gm/dL (13.0-17.5); Hypochromasia Moderate; Lymphocytes # (A) 2.4 k/uL (1.0-4.8); Lymphocytes % (A) 7 %; MCHC 30.8 g/dL (31.0-37.0); MCV 77.8 fL (80.0-100.0); Mean Platelet Volume 9.4; Microcytosis Slight; Monocytes % (A) 3 %; Neutrophils # (A) 28.4 k/uL (1.3-7.7); Neutrophils % (A) 88 %; Platelet Count 734 k/uL (150-450); RBC 3.61 m/uL (4.30-5.90); RDW 16.8 % (11.5-15.5)
[2022-10-07] MEDS ORDERED: SODIUM CHLORIDE 0.9% 1,000 ML IV ONE (22:27)
[2022-10-07 22:50] LABS: Appearance,Urine Cloudy (Clear); Bilirubin,Urine Negative (Negative); Blood,Urine Negative (Negative); Color,Urine Yellow; Glucose,Urine (UA) Negative (Negative); Ketones,Urine Negative (Negative); Leukocyte Esterase,Urine Negative (Negative); Nitrite,Urine Negative (Negative); Protein,Urine Trace (Negative); RBC,Urine 1 /hpf (0-5); Specific Gravity,Urine 1.018 (1.001-1.035); WBC,Urine 1 /hpf (0-5)
[2022-10-07 22:51] LABS: ALT 63 U/L (4-49); AST 43 U/L (17-59); African American GFR (CKD) 67 (>60 ml/min/1.73 sqM); Alkaline Phosphatase 206 U/L (38-126); Blood Urea Nitrogen 42 mg/dL (9-20); Calcium 8.5 mg/dL (8.4-10.2); Carbon Dioxide 24 mmol/L (22-30); Glucose 101 mg/dL (74-99); Lipase 136 U/L (23-300); Magnesium 2.7 mg/dL (1.6-2.3); Non-African American GFR(CKD) 58 (>60 ml/min/1.73 sqM); Total Bilirubin 0.8 mg/dL (0.2-1.3)
[2022-10-07 23:30] LABS: Anion Gap 12 mmol/L; Chloride 97 mmol/L (98-107); Sodium 133 mmol/L (137-145)
--- NOTE | 2022-10-07 23:40 | CT ---
EXAM: CT Cervical Spine Without Intravenous Contrast CLINICAL HISTORY: ITS.REASON CT Reason: Pain TECHNIQUE: Axial computed tomography images of the cervical spine without intravenous contrast. CTDI is 31.6 mGy and DLP is 959.1 mGy-cm. This CT exam was performed using one or more of the following dose reduction techniques: automated exposure control, adjustment of the mA and/or kV according to patient size, and/or use of iterative reconstruction technique. COMPARISON: No previous studies. FINDINGS: Vertebrae: Levoscoliosis. There is straightening and reversal of the peripheral the cervical spine suggestive of muscle spasm. Spinous processes are unremarkable. Grade 1 anterolisthesis of C2 upon C3 vertebral body. There is a normal relationship of C1 and C2. Transaxial images of the cervical spine reveals multilevel posterior facet hypertrophy and disc osteophyte complexes. No acute fracture. Discs/spinal canal/neural foramina: Moderate to severe degenerative disc disease. No spinal canal stenosis. Soft tissues: Paraspinal and regional soft tissues are within normal limits. Lung apices: Lung apices are unremarkable. IMPRESSION: 1. Straightening and reversal of the curvature of the cervical spine suggestive of muscle spasm. 2. No acute injury to the cervical spine.
--- NOTE | 2022-10-07 23:44 | CT ---
EXAM: CT Cervical Spine Without Intravenous Contrast CLINICAL HISTORY: ITS.REASON CT Reason: Pain TECHNIQUE: Axial computed tomography images of the cervical spine without intravenous contrast. CTDI is 16.05 mGy and DLP is 1086.475 mGy-cm. This CT exam was performed using one or more of the following dose reduction techniques: automated exposure control, adjustment of the mA and/or kV according to patient size, and/or use of iterative reconstruction technique. COMPARISON: No relevant prior studies available. FINDINGS: Vertebrae: Kyphosis. Gentle dextroscoliosis. Spinous processes are unremarkable. Transaxial images of the thoracic spine reveals no acute injury to the thoracic spine. Discs/spinal canal/neural foramina: Moderate degenerative disc disease of the thoracic spine. No spinal canal stenosis. Soft tissues: Unremarkable. Pleural space: Small bilateral pleural effusions. Mediastinum: Small to moderate hiatal hernia and probable distal esophagitis. Other findings: No previous studies. IMPRESSION: 1. Degenerative disc disease and kyphosis. 2. Hiatal hernia. 3. No acute injury to the thoracic spine. EXAM: CT Lumbar Spine Without Intravenous Contrast CLINICAL HISTORY: ITS.REASON CT Reason: Pain TECHNIQUE: Axial computed tomography images of the lumbar spine without intravenous contrast. CTDI is 16.05 mGy and DLP is 1086.475 mGy-cm. This CT exam was performed using one or more of the following dose reduction techniques: automated exposure control, adjustment of the mA and/or kV according to patient size, and/or use of iterative reconstruction technique. COMPARISON: No previous studies. FINDINGS: Vertebrae: Spinous processes are unremarkable. Transaxial images of the lumbar spine reveals no acute injury to the lumbar spine. No compression fractures of lumbar vertebral bodies. No spondylolysis. Sacrum/coccyx: Visualized sacrum is unremarkable. Other bones/joints: Sclerotic foci of the posterior right iliac wing are noted most compatible with bone islands. Discs/spinal canal/neural foramina: Mild to moderate degenerative disc disease of the lumbar spine. Vacuum disc at the L5-S1 level. No spinal canal stenosis. Soft tissues: Paraspinal and regional soft tissues are unremarkable. IMPRESSION: 1. Degenerative disc disease of the lumbar spine. 2. No acute injury to the lumbar spine.
--- NOTE | 2022-10-07 23:46 | CT ---
EXAM: CT Abdomen and Pelvis With Intravenous Contrast CLINICAL HISTORY: ITS.REASON CT Reason: Acute abdominal pain, distention TECHNIQUE: Axial computed tomography images of the abdomen and pelvis with intravenous contrast. CTDI is 32.1 mGy and DLP is 2172.95 mGy-cm. This CT exam was performed using one or more of the following dose reduction techniques: automated exposure control, adjustment of the mA and/or kV according to patient size, and/or use of iterative reconstruction technique. COMPARISON: 08/01/2017. FINDINGS: Artifacts: Motion artifact limits evaluation. Lung bases: Scarring and subsegmental atelectasis near the lung bases. Heart: Heart is normal in size. Mediastinum: Moderate hiatal hernia and probable distal esophagitis. ABDOMEN: Liver: Fatty infiltration of the liver. Gallbladder and bile ducts: See below. Pancreas: See below. Spleen: Spleen enhances uniformly. Adrenals: The adrenal glands, the head, body, tail of the pancreas and the gallbladder are unremarkable. Kidneys and ureters: Nonspecific stranding about the perinephric spaces without hydronephrosis. Stomach and bowel: Moderate quantity of stool throughout the colon. Diverticulosis without diverticulitis. No obstruction. PELVIS: Appendix: Appendix is seen on coronal image 59 and is unremarkable. Bladder: Cash catheter within underdistended bladder. Reproductive: Unremarkable as visualized. ABDOMEN and PELVIS: Intraperitoneal space: Unremarkable. No free air. No significant fluid collection. Bones/joints: No acute fracture. No dislocation. No spondylolysis. Soft tissues: Unremarkable. Vasculature: Portal vein is patent. Flow is noted within the celiac, SMA, the renal arteries, and SIOBHAN. No abdominal aortic aneurysm. Lymph nodes: Unremarkable. No retroperitoneal lymphadenopathy. IMPRESSION: 1. Moderate hiatal hernia and distal esophagitis. 2. Fatty liver. 3. Motion artifact limits avulsion. 4. The gallbladder is unremarkable. 5. No hydronephrosis. 6. The appendix is unremarkable. 7. Moderate quantity of stool throughout the colon without bowel obstruction. 8. Diverticulosis without diverticulitis.
--- NOTE | 2022-10-08 00:34 | ED ---
General Adult HPI - General Chief complaint: Back Pain/Injury Stated complaint: Neck Pain, Back pain, Leg Pain Time Seen by Provider: 10/07/22 21:13 Source: patient, EMS Mode of arrival: wheelchair Limitations: no limitations - History of Present Illness Initial comments: This is a 52-year-old male with a past medical history including previous back pain presents emergency department for worsening extreme back pain and inability to completely urinate. The patient stated that he started having back pain on September 25 when he woke up out of sleep complaining of low back pain that radiate down his right leg. The patient was treated for sciatica at that time and was given medications. The patient followed up with his private care physician as well as the chiropractor 2, each, but stated that the pain continued. The patient stated that after the chiropractor on , he had worsening neck and back pain to the point where he could not move. Since the pain began on the , the patient stated that he is unable to walk even with a walker. The patient stated today that he had significant abdominal pain and has been having the sensation of urination however is unable to urinate significantly for last 2 weeks. The patient was in moderate distress secondary to back pain on arrival. The patient denied any numbness and tingling. - Related Data Home Medications Medication Instructions Recorded Confirmed Sinex Nasal [place] 1 spray EA NOSTRIL BID 08/06/19 10/27/19 Hydrocodone/Acetaminophen [Raphine 1 tab PO Q6HR PRN 10/20/19 10/27/19 7.5-325] Previous Rx's Medication Instructions Recorded Docusate [Colace] 100 mg PO DAILY #30 capsule 10/28/19 Hydrocodone/Acetaminophen [Raphine 1 - 2 each PO Q6H PRN #56 tab 10/28/19 10-325] traMADol HCl [Ultram] 50 mg PO Q6H PRN #28 tab 10/28/19 Cyclobenzaprine [Flexeril] 10 mg PO TID PRN #15 tab 09/27/22 Ketorolac [Toradol] 10 mg PO Q8HR #15 tab 09/27/22 predniSONE 50 mg PO DAILY #5 tab 09/27/22 Allergies Allergy/AdvReac Type Severity Reaction Status Date / Time No Known Allergies Allergy Verified 10/07/22 20:52 Review of Systems ROS Statement: Those systems with pertinent positive or pertinent negative responses have been documented in the HPI. ROS Other: All systems not noted in ROS Statement are negative. Past Medical History Past Medical History: Osteoarthritis (OA) History of Any Multi-Drug Resistant Organisms: None Reported Past Surgical History: Orthopedic Surgery Additional Past Surgical History / Comment(s): BILATERAL ARTHROSCOPIC KNEE SURGERY, TOTAL RIGHT KNEE; UMBILIAL HERNIA REPAIR Past Anesthesia/Blood Transfusion Reactions: No Reported Reaction Past Psychological History: No Psychological Hx Reported Smoking Status: Never smoker Past Alcohol Use History: Occasional Past Drug Use History: None Reported - Past Family History Mother Family Medical History: No Reported History General Exam Limitations: no limitations General appearance: alert, in distress (2/2 back pain and lower abdominal pain) Head exam: Present: atraumatic, normocephalic, normal inspection Eye exam: Present: normal appearance, PERRL Pupils: Present: normal accommodation ENT exam: Present: normal exam, normal oropharynx, mucous membranes moist Neck exam: Present: normal inspection, full ROM Respiratory exam: Present: normal lung sounds bilaterally. Absent: respiratory distress Cardiovascular Exam: Present: normal rhythm, tachycardia GI/Abdominal exam: Present: distended, tenderness (TTP over the suprapubic region with fullness noted) Rectal exam: Present: normal rectal tone exam: Present: normal inspection. Absent: urethral discharge, scrotal swelling Extremities exam: Present: normal inspection, pedal edema, other (Decreased ROM 2/2 back pain) Back exam: Present: tenderness (TTP alonog the midline thoracic and lumbar spine), muscle spasm, other (Positive bilateral straight leg test) Neurological exam: Present: alert, oriented X3, CN II-XII intact Psychiatric exam: Present: normal affect, normal mood Skin exam: Present: warm, dry Course Vital Signs 10/07/22 10/07/22 10/07/22 20:50 21:50 22:58 Temperature 98.1 F Pulse Rate 111 H 100 98 Respiratory 18 20 22 Rate Blood Pressure 106/72 136/119 146/83 O2 Sat by Pulse 99 97 97 Oximetry 10/07/22 23:48 Temperature 99.3 F Pulse Rate 100 Respiratory 20 Rate Blood Pressure 146/108 O2 Sat by Pulse 97 Oximetry Medical Decision Making - Medical Decision Making Was pt. sent in by a medical professional or institution (, PA, TESTING MACHINE OPERATOR, urgent care, hospital, or senior care...) When possible be specific @ -No Did you speak to anyone other than the patient for history (EMS, parent, family, police, friend...)? What history was obtained from this source @ -Yes, patient's is at the bedside and stated the patient has had inability to ambulate secondary to continued back pain despite being on multiple different medications for multiple different physicians. The patient at his primary care physician and was given steroids in anti-inflammatories however did not have any improvement even despite going to a chiropractor. The patient stated that he had worsening pain after the chiropractor and the did confirm this. Did you review nursing and triage notes (agree or disagree)? Why? @ -I reviewed and agree with nursing and triage notes Were old charts reviewed (outside hosp., previous admission, EMS record, old EKG, old radiological studies, urgent care reports/EKG's, senior care records)? Report findings @ -No old charts were reviewed Differential Diagnosis (chest pain, altered mental status, abdominal pain women, abdominal pain men, vaginal bleeding, weakness, fever, dyspnea, syncope, headache, dizziness, GI bleed, back pain, seizure, CVA, palpatations, mental health)? @ -Epidural abscess, cauda equina syndrome, bulging or ruptured disc, spinal fracture EKG interpreted by me (3pts min.). @ -As above X-rays interpreted by me (1pt min.). @ -None done CT interpreted by me (1pt min.). @ -CT of the cervical spine, lumbar spine and thoracic spine were obtained and interpreted by myself showing straightening and reversal of the curvature of the cervical spine suggestive of muscle spasm. There was no acute injury to the cervical spine. Lumbar and thoracic spine showed degenerative disc disease and kyphosis, hiatal hernia, no acute intrathoracic thoracic spine. There was no acute injury to the lumbar spine. CT of the abdomen and pelvis with IV contrast was obtained and was interpreted by myself showing moderate hiatal hernia and distal esophagitis, fatty liver, unremarkable gallbladder, no hydronephrosis, appendix is unremarkable. There was moderate quantity of stool throughout the colon without bowel obstruction. There was diverticulosis without diverticulitis. U/S interpreted by me (1pt. min.). @ -None done What testing was considered but not performed or refused? (CT, X-rays, U/S, labs)? Why? @ -None What meds were considered but not given or refused? Why? @ -None Did you discuss the management of the patient with other professionals (professionals i.e. , MICHAELA, TESTING MACHINE OPERATOR, lab, RT, psych nurse, case management social worker, toy packer, teacher, navy airspace officer, case management director)? Give summary @ -Yes, I discussed the patient with the transfer team at [place]. Dr. Wilson from [facility] accepted the patient for transfer. Was smoking cessation discussed for >3mins.? @ -No Was critical care preformed (if so, how long)? @ -No Were there social determinants of health that impacted care today? How? (Homelessness, low income, unemployed, alcoholism, drug addiction, transportation, low edu. Level, literacy, decrease access to med. care, custodial, rehab)? @ -No Was there de-escalation of care discussed even if they declined (Discuss DNR or withdrawal of care, Hospice)? DNR status @ -No What co-morbidities impacted this encounter? (DM, HTN, Smoking, COPD, CAD, Cancer, CVA, ARF, Chemo, Hep., AIDS, mental health diagnosis, sleep apnea, morbid obesity)? @ -Multiple orthopedic surgeries, hypertension Was patient admitted / discharged? Hospital course, mention meds given and route, prescriptions, significant lab abnormalities, going to OR and other pertinent info. @ -The patient was seen and evaluated emergency department. Physical exam, the patient was resting in bed in moderate distress secondary to back pain. Vital signs admission were stable however. The patient was afebrile. Due to the age of the patient's complaints, laboratory workup as well as imaging was obtained. A bladder scan was also ordered and was greater than 900 mL and a Cash catheter was placed. The catheter did return 2000 mL of urine. The patient did have improvement of his symptoms. Laboratory workup showed an elevated white blood cell count of 32 however had no further signs of sepsis at this time. CT imaging was negative for any acute fractures or spinal pathology. The patient on reevaluation had moderate improvement of his pain after medications including morphine, Norflex and Toradol. Due to the patient's continued back pain in the setting of urinary retention and significantly elevated with blood cell count, the patient will require transfer for higher level of care for likely MRI and neurosurgery evaluation. [facility] was initially contacted but stated that they were on diversion. [facility] Chavez was then contacted. Dr. Wilson accepted the patient for transfer and the patient was agreeable to this plan. The patient was transferred in stable condition. Undiagnosed new problem with uncertain prognosis? @ -No Drug Therapy requiring intensive monitoring for toxicity (Heparin, Nitro, Insulin, Cardizem)? @ -No Were any procedures done? @ -No Diagnosis/symptom? @ -Intractable back pain, urinary retention, rule out epidural abscess and cauda equina syndrome Acute, or Chronic, or Acute on Chronic? @ -Acute Uncomplicated (without systemic symptoms) or Complicated (systemic symptoms)? @ -Complicated Side effects of treatment? @ -No Exacerbation, Progression, or Severe Exacerbation? @ -No Poses a threat to life or bodily function? How? (Chest pain, [place], [place], pneumonia, PE, COPD, DKA, ARF, appy, cholecystitis, CVA, Diverticulitis, Homicidal, Suicidal, threat to staff... and all critical care pts) @ -Yes, continued back pain, epidural abscess and possible cauda equina syndrome can lead to permanent damage and possible . - Lab Data Result diagrams: 10/07/22 21:55 10/07/22 21:55 Lab Results 10/07/22 10/07/22 10/07/22 Range/Units 21:55 21:55 21:55 WBC 32.2 H (3.8-10.6) k/uL RBC 3.61 L (4.30-5.90) m/uL Hgb 8.7 L (13.0-17.5) gm/dL Hct 28.1 L (39.0-53.0) % MCV 77.8 L (80.0-100.0) fL MCH 24.0 L (25.0-35.0) pg MCHC 30.8 L (31.0-37.0) g/dL RDW 16.8 H (11.5-15.5) % Plt Count 734 H (150-450) k/uL MPV 9.4 Neutrophils % 88 % Lymphocytes % 7 % Monocytes % 3 % Eosinophils % 0 % Basophils % 0 % Neutrophils # 28.4 H (1.3-7.7) k/uL Lymphocytes # 2.4 (1.0-4.8) k/uL Monocytes # 1.0 (0-1.0) k/uL Eosinophils # 0.0 (0-0.7) k/uL Basophils # 0.1 (0-0.2) k/uL Hypochromasia Moderate Anisocytosis Slight Microcytosis Slight Sodium 133 L (137-145) mmol/L Potassium 5.0 (3.5-5.1) mmol/L Chloride 97 L (98-107) mmol/L Carbon Dioxide 24 (22-30) mmol/L Anion Gap 12 mmol/L BUN 42 H (9-20) mg/dL Creatinine 1.41 H (0.66-1.25) mg/dL Est GFR (CKD-EPI)AfAm 67 (>60 ml/min/1.73 sqM) Est GFR (CKD-EPI)NonAf 58 (>60 ml/min/1.73 sqM) Glucose 101 H (74-99) mg/dL Calcium 8.5 (8.4-10.2) mg/dL Magnesium 2.7 H (1.6-2.3) mg/dL Total Bilirubin 0.8 (0.2-1.3) mg/dL AST 43 (17-59) U/L ALT 63 H (4-49) U/L Alkaline Phosphatase 206 H (38-126) U/L Total Protein 7.0 (6.3-8.2) g/dL Albumin 3.0 L (3.5-5.0) g/dL Lipase 136 (23-300) U/L Urine Color Yellow Urine Appearance Cloudy (Clear) Urine pH 7.0 (5.0-8.0) Ur Specific [place] 1.018 (1.001-1.035) Urine Protein Trace H (Negative) Urine Glucose (UA) Negative (Negative) Urine Ketones Negative (Negative) Urine Blood Negative (Negative) Urine Nitrite Negative (Negative) Urine Bilirubin Negative (Negative) Urine Urobilinogen 12.0 (<2.0) mg/dL Ur Leukocyte Esterase Negative (Negative) Urine RBC 1 (0-5) /hpf Urine WBC 1 (0-5) /hpf Disposition Clinical Impression: Back pain, Urinary retention, Leukocytosis Disposition: OTHER INSTITUTION NOT DEFINED Condition: Stable Is patient prescribed a controlled substance at d/c from ED?: No Referrals: Gerson Barba DO [Primary Care Provider] - 1-2 days Time of Disposition: 00:15 - Out of Hospital Transfer - Req. Specs Out of Hospital Transfer - Requested Specifics: Other Emergency Center ([facility])
[2022-10-08] MEDS ORDERED: MORPHINE SULFATE 4 MG/ML SYRINGE IVP STA (01:28)
[2022-10-08] MEDS ORDERED: ACETAMINOPHEN TAB 500 MG TAB PO STA (01:46)
[2022-10-08 02:01] VITALS: BP 109/68; PULSE 132; RESP 18; TEMP 103.2
== END 2022-10-08 02:04 | disposition other institution (70) ==
LOC: EC 20:37
DX: M54.9 Dorsalgia, unspecified (principal); R33.9 Retention of urine, unspecified; D72.829 Elevated white blood cell count, unspecified
CPT/HCPCS: 51798; 36415; 80053; 83690; 83735; 85025; 81001; 72129; 72125; 72132; 74177; 99284; 51702; 96374; 96375 ×2; 96361; 96376; J2270; J2360; J1885; Q9967

== ENCOUNTER 2022-10-20 22:09 | Observation (INO) | payer OTHER ==
[2022-10-20] MEDS ORDERED: SODIUM CHLORIDE 0.9% 1,000 ML IV STA (22:52)
[2022-10-20] MEDS ORDERED: ONDANSETRON 4 MG/2 ML VIAL IVP STA (22:52)
[2022-10-20] MEDS ORDERED: MORPHINE SULFATE 4 MG/ML SYRINGE IV STA (22:52)
--- NOTE | 2022-10-20 22:52 | ED ---
Recheck HPI - General Chief Complaint: Recheck/Abnormal Lab/Rx Stated Complaint: Recheck Time Seen by Provider: 10/20/22 22:15 Source: patient, RN notes reviewed, old records reviewed Mode of arrival: EMS Limitations: no limitations - History of Present Illness Initial Comments: This is a 52-year-old male presents for evaluation today. Patient presents today to the emergency department for evaluation of failed antibiotic treatment. Patient was brought to the ER today as he was unable to have antibiotics at his extended care facility as they did not have it in stock. Patient will need to be admitted for IV antibiotics replacement to a facility that does have his needed medications. , family very upset current extended-care facility secondary to lack of preparedness MD Complaint: wound re-check, abnormal lab -: hour(s) Returns Today for: needs IV antibiotics Symptoms Since Prior Visit: no new symptoms Context: ran out of medication Associated Symptoms: none Treatments Prior to Arrival: Given Antibiotics on - Related Data Home Medications Medication Instructions Recorded Confirmed Docusate [Colace] 100 mg PO BID 10/21/22 10/21/22 Gabapentin [Neurontin] 300 mg PO TID 10/21/22 10/21/22 Nafcillin [Nafcil] 2 gm IVPB Q4H 10/21/22 10/21/22 Omeprazole [PriLOSEC] 20 mg PO BID 10/21/22 10/21/22 Ondansetron [Zofran] 4 mg PO Q8HR PRN 10/21/22 10/21/22 Pantoprazole Sodium [Protonix] 40 mg PO BID 10/21/22 10/21/22 Sennosides [Senokot] 17.2 mg PO BID 10/21/22 10/21/22 methocarbamoL [Methocarbamol] 750 mg PO QID 10/21/22 10/21/22 oxyCODONE HCL [Oxycodone HCl] 15 mg PO Q3H PRN 10/21/22 10/21/22 polyethylene glycoL 3350 [Miralax] 17 gm PO Q4HR PRN 10/21/22 10/21/22 rifAMPin [Rifadin] 600 mg PO DAILY 10/21/22 10/21/22 traMADol HCl [Ultram] 50 mg PO Q4H PRN 10/21/22 10/21/22 Allergies Allergy/AdvReac Type Severity Reaction Status Date / Time No Known Allergies Allergy Verified 10/21/22 11:01 Review of Systems ROS Statement: Those systems with pertinent positive or pertinent negative responses have been documented in the HPI. ROS Other: All systems not noted in ROS Statement are negative. Past Medical History Past Medical History: Osteoarthritis (OA) History of Any Multi-Drug Resistant Organisms: None Reported Past Surgical History: Orthopedic Surgery Additional Past Surgical History / Comment(s): BILATERAL ARTHROSCOPIC KNEE SURGERY, TOTAL RIGHT KNEE; UMBILIAL HERNIA REPAIR neck fusion c3-7 Past Anesthesia/Blood Transfusion Reactions: No Reported Reaction Past Psychological History: No Psychological Hx Reported Smoking Status: Never smoker Past Alcohol Use History: Occasional Past Drug Use History: None Reported - Past Family History Mother Family Medical History: No Reported History General Exam Limitations: no limitations General appearance: alert, in no apparent distress Head exam: Present: atraumatic, normocephalic, normal inspection Eye exam: Present: normal appearance, PERRL, EOMI. Absent: scleral icterus, conjunctival injection, periorbital swelling ENT exam: Present: normal exam, mucous membranes moist Neck exam: Present: normal inspection. Absent: tenderness, meningismus, lymphadenopathy Respiratory exam: Present: normal lung sounds bilaterally. Absent: respiratory distress, wheezes, rales, rhonchi, stridor Cardiovascular Exam: Present: regular rate, normal rhythm, normal heart sounds. Absent: systolic murmur, diastolic murmur, rubs, gallop, clicks GI/Abdominal exam: Present: soft, normal bowel sounds. Absent: distended, tenderness, guarding, rebound, rigid Extremities exam: Present: normal inspection, full ROM, normal capillary refill. Absent: tenderness, pedal edema, joint swelling, calf tenderness Back exam: Present: normal inspection Neurological exam: Present: alert, oriented X3, CN II-XII intact Psychiatric exam: Present: normal affect, normal mood Skin exam: Present: warm, dry, intact, normal color. Absent: rash Course Vital Signs 10/20/22 10/20/22 10/21/22 22:17 22:22 01:03 Temperature 99.0 F Pulse Rate 93 68 92 Respiratory 20 16 18 Rate Blood Pressure 144/74 144/79 142/72 O2 Sat by Pulse 97 98 94 L Oximetry - Reevaluation(s) Reevaluation #1: 09/03/23 00:24 Medical records reviewed Reevaluation #2: 10/21/22 00:24 Patient symptoms unchanged Reevaluation #3: 10/21/22 00:24 Patient informed results questions answered Reevaluation #4: 10/21/22 00:24 Was pt. sent in by a medical professional or institution (MICHAELA Esparza, KILN HAND, urgent care, hospital, or [facility]...) When possible be specific @ -no Did you speak to anyone other than the patient for history (EMS, parent, family, police, friend...)? What history was obtained from this source @ -no Did you review nursing and triage notes (agree or disagree)? Why? @ -agree Are old charts reviewed (outside hosp., previous admission, EMS record, old EKG, old radiological studies, urgent care reports/EKG's, [facility] records)? Report findings @ -yes Differential Diagnosis (chest pain, altered mental status, abdominal pain women, abdominal pain men, vaginal bleeding, weakness, fever, dyspnea, syncope, headache, dizziness, GI bleed, back pain, seizure, CVA, palpatations, mental health, musculoskeletal)? @ -prior EKG interpreted by me (3pts min.). @ -yes X-rays interpreted by me (1pt min.). @ -no CT interpreted by me (1pt min.). @ -no U/S interpreted by me (1pt. min.). @ -no What testing was considered but not performed or refused? (CT, X-rays, U/S, labs)? Why? @ -none What meds were considered but not given or refused? Why? @ -none Did you discuss the management of the patient with other professionals (professionals i.e. MICHAELA Esparza, KILN HAND, lab, RT, psych nurse, social science instructor, ophthalmology technician, teacher, business enterprise officer, case checker)? Give summary @ -no Was smoking cessation discussed for >3mins.? @ -no Was critical care preformed (if so, how long)? @ -no Were there social determinants of health that impacted care today? How? (Homelessness, low income, unemployed, alcoholism, drug addiction, transportat ion, low edu. Level, literacy, decrease access to med. care, halfway, rehab)? @ -none Was there de-escalation of care discussed even if they declined (Discuss DNR or withdrawal of care, Hospice)? DNR status @ -no What co-morbidities impacted this encounter? (DM, HTN, Smoking, COPD, CAD, Cancer, CVA, ARF, Chemo, Hep., AIDS, mental health diagnosis, sleep apnea, morbid obesity)? @ -none Was patient admitted / discharged? Hospital course, mention meds given and route, prescriptions, significant lab abnormalities, going to OR and other pertinent info. @ - 52 male to the ER for evaluation of evaluation ER IV antibiotics patient will be admitted for treatment and placement Admitted Undiagnosed new problem with uncertain prognosis? @ -no Drug Therapy requiring intensive monitoring for toxicity (Heparin, Nitro, Insulin, Cardizem)? @ -no Were any procedures done? @ -no Diagnosis/symptom? @ -Bacteremia requiring IV antibiotics Acute, or Chronic, or Acute on Chronic? @ -Acute Uncomplicated (without systemic symptoms) or Complicated (systemic symptoms)? @ -Complicated Side effects of treatment? @ -no Exacerbation, Progression, or Severe Exacerbation? @ -exacerbation Poses a threat to life or bodily function? How? (Chest pain, [place], [place], pneumonia, PE, COPD, DKA, ARF, appy, cholecystitis, CVA, Diverticulitis, Homicidal, Suicidal, threat to staff... and all critical care pts) @ -yes with significant sepsis - Consultations Consultation #1: Spoke with sound for admission he agrees Medical Decision Making - Medical Decision Making 52 male to the ER for evaluation of evaluation ER IV antibiotics patient will be admitted for treatment and placement - Lab Data Result diagrams: 10/22/22 12:13 10/21/22 00:01 Lab Results 10/21/22 10/21/22 10/21/22 Range/Units 00:01 00:01 00:01 WBC 8.6 (3.8-10.6) k/uL RBC 3.03 L (4.30-5.90) m/uL Hgb 7.9 L (13.0-17.5) gm/dL Hct 25.1 L (39.0-53.0) % MCV 82.8 D (80.0-100.0) fL MCH 26.0 (25.0-35.0) pg MCHC 31.4 (31.0-37.0) g/dL RDW 16.9 H (11.5-15.5) % Plt Count 621 H (150-450) k/uL MPV 8.4 Neutrophils % 75 % Lymphocytes % 14 % Monocytes % 6 % Eosinophils % 3 % Basophils % 0 % Neutrophils # 6.4 (1.3-7.7) k/uL Lymphocytes # 1.2 (1.0-4.8) k/uL Monocytes # 0.6 (0-1.0) k/uL Eosinophils # 0.3 (0-0.7) k/uL Basophils # 0.0 (0-0.2) k/uL Hypochromasia Marked Anisocytosis Slight PT 13.5 H (9.0-12.0) sec INR 1.3 H (<1.2) APTT 28.2 (22.0-30.0) sec Sodium 133 L (137-145) mmol/L Potassium 3.6 (3.5-5.1) mmol/L Chloride 100 (98-107) mmol/L Carbon Dioxide 26 (22-30) mmol/L Anion Gap 7 mmol/L BUN 9 (9-20) mg/dL Creatinine 0.71 (0.66-1.25) mg/dL Est GFR (CKD-EPI)AfAm >90 (>60 ml/min/1.73 sqM) Est GFR (CKD-EPI)NonAf >90 (>60 ml/min/1.73 sqM) Glucose 92 (74-99) mg/dL Plasma Lactic Acid [place] (0.7-2.0) mmol/L Calcium 8.3 L (8.4-10.2) mg/dL Phosphorus 4.7 H (2.5-4.5) mg/dL Magnesium 2.0 (1.6-2.3) mg/dL Total Bilirubin 0.7 (0.2-1.3) mg/dL AST 24 (17-59) U/L ALT 20 (4-49) U/L Alkaline Phosphatase 90 (38-126) U/L Troponin I (0.000-0.034) ng/mL NT-Pro-B Natriuret Pep 23 pg/mL Total Protein 7.3 (6.3-8.2) g/dL Albumin 2.6 L (3.5-5.0) g/dL 10/21/22 10/21/22 Range/Units 00:01 00:01 WBC (3.8-10.6) k/uL RBC (4.30-5.90) m/uL Hgb (13.0-17.5) gm/dL Hct (39.0-53.0) % MCV (80.0-100.0) fL MCH (25.0-35.0) pg MCHC (31.0-37.0) g/dL RDW (11.5-15.5) % Plt Count (150-450) k/uL MPV Neutrophils % % Lymphocytes % % Monocytes % % Eosinophils % % Basophils % % Neutrophils # (1.3-7.7) k/uL Lymphocytes # (1.0-4.8) k/uL Monocytes # (0-1.0) k/uL Eosinophils # (0-0.7) k/uL Basophils # (0-0.2) k/uL Hypochromasia Anisocytosis PT (9.0-12.0) sec INR (<1.2) APTT (22.0-30.0) sec Sodium (137-145) mmol/L Potassium (3.5-5.1) mmol/L Chloride (98-107) mmol/L Carbon Dioxide (22-30) mmol/L Anion Gap mmol/L BUN (9-20) mg/dL Creatinine (0.66-1.25) mg/dL Est GFR (CKD-EPI)AfAm (>60 ml/min/1.73 sqM) Est GFR (CKD-EPI)NonAf (>60 ml/min/1.73 sqM) Glucose (74-99) mg/dL Plasma Lactic Acid [place] 0.7 (0.7-2.0) mmol/L Calcium (8.4-10.2) mg/dL Phosphorus (2.5-4.5) mg/dL Magnesium (1.6-2.3) mg/dL Total Bilirubin (0.2-1.3) mg/dL AST (17-59) U/L ALT (4-49) U/L Alkaline Phosphatase (38-126) U/L Troponin I <0.012 (0.000-0.034) ng/mL NT-Pro-B Natriuret Pep pg/mL Total Protein (6.3-8.2) g/dL Albumin (3.5-5.0) g/dL - EKG Data -: EKG Interpreted by Me (EKG is sinus 95 DE 146 QRS 108 QTc 404) Disposition Clinical Impression: Weakness, Bacteremia Disposition: ADMITTED IP TO THIS HOSP Condition: Fair Is patient prescribed a controlled substance at d/c from ED?: No Time of Disposition: 00:30
[2022-10-20] MEDS ORDERED: NAFCILLIN 2 GM in DEXTROSE 5% IN WATER 100 ML IVPB ONE ×2 (23:00)
[2022-10-21] MEDS ORDERED: NALOXONE 0.4 MG/ML 1 ML VIAL IV PRN (00:19)
[2022-10-21] MEDS ORDERED: ONDANSETRON 4 MG/2 ML VIAL IVP PRN (00:19)
[2022-10-21 00:23] LABS: ALT 20 U/L (4-49); AST 24 U/L (17-59); African American GFR (CKD) >90 (>60 ml/min/1.73 sqM); Albumin 2.6 g/dL (3.5-5.0); Alkaline Phosphatase 90 U/L (38-126); Anion Gap 7 mmol/L; Blood Urea Nitrogen 9 mg/dL (9-20); Calcium 8.3 mg/dL (8.4-10.2); Carbon Dioxide 26 mmol/L (22-30); Chloride 100 mmol/L (98-107); Glucose 92 mg/dL (74-99); Non-African American GFR(CKD) >90 (>60 ml/min/1.73 sqM); Phosphorus 4.7 mg/dL (2.5-4.5); Potassium 3.6 mmol/L (3.5-5.1); Sodium 133 mmol/L (137-145); Total Bilirubin 0.7 mg/dL (0.2-1.3); Total Protein 7.3 g/dL (6.3-8.2)
[2022-10-21 00:26] LABS: Anisocytosis Slight; Basophils % (A) 0 %; Eosinophils # (A) 0.3 k/uL (0-0.7); Eosinophils % (A) 3 %; HCT 25.1 % (39.0-53.0); HGB 7.9 gm/dL (13.0-17.5); Hypochromasia Marked; Lymphocytes # (A) 1.2 k/uL (1.0-4.8); Lymphocytes % (A) 14 %; MCHC 31.4 g/dL (31.0-37.0); Mean Platelet Volume 8.4; Monocytes # (A) 0.6 k/uL (0-1.0); Monocytes % (A) 6 %; Neutrophils # (A) 6.4 k/uL (1.3-7.7); Neutrophils % (A) 75 %; Platelet Count 621 k/uL (150-450); RBC 3.03 m/uL (4.30-5.90); RDW 16.9 % (11.5-15.5); WBC 8.6 k/uL (3.8-10.6)
[2022-10-21 00:31] LABS: INR 1.3 (<1.2); NT-Pro-B-Type Natriuretic Pept 23 pg/mL; Partial Thromboplastin Time 28.2 sec (22.0-30.0); Prothrombin Time 13.5 sec (9.0-12.0)
[2022-10-21 00:45] LABS: MCV 82.8 fL (80.0-100.0)
[2022-10-21] MEDS: SODIUM CHLORIDE 0.9% 1,000 ML IV SCH (02:19)
[2022-10-21] MEDS ORDERED: CYCLOBENZAPRINE 10 MG TAB PO PRN (02:25)
--- NOTE | 2022-10-21 02:35 | P.HPIM ---
History of Present Illness H&P Date: 10/21/22 Chief Complaint: Reason cervical and lumbar spine epidural abscess 52-year-old male has recently in underwent surgical evacuation of cervical, lumbar vertebral and left knee abscess evacuation at [facility]. Around October 09 he then was discharged yesterday to [facility] that he was supposed to be on antibiotics for another 36 days however to their surprise [facility] did not have the antibiotics and they decided to come to the hospital for further care. Patient currently denies any fevers or chills denies any new onset weakness numbness tingling in his extremities denies any chest pain trouble breathing any cough denies any belly pain nausea vomiting Patient received his care at [facility] where he was treated for sepsis for spinal epidural abscess and left knee septic arthritis He supposed to continue nafcillin 2 g every 4 hours IV piggyback for another 36 days until November 25 review of systems Pertinent positives as noted in HPI. All other systems were reviewed and are negative on exam Constitutional: No acute distress, conversant, pleasant Eyes: Anicteric sclerae, moist conjunctiva, Pupils equal round reactive to light ENMT: NC/AT Oropharynx clear, no erythema, or exudates Neck: Hard neck collar in place Lungs: Clear to auscultation Clear to percussion Normal respiratory effort, no accessory muscle use Cardiovascular: Heart regular in rate and rhythm, No murmurs, gallops, or rubs No peripheral edema Abdominal: Soft Nontender, no guarding, rebound or rigidity Abdomen moving with respiration Normoactive bowel sounds No hepatomegaly, No splenomegaly No palpable mass No abdominal wall hernia noted Skin: Normal temperature, tone, texture, turgor No induration No subcutaneous nodules No rash, lesions No ulcers Extremities: No digital cyanosis No clubbing Pedal pulses intact and symmetrical Radial pulses intact and symmetrical No calf tenderness Psychiatric: Alert and oriented to person, place and time Appropriate affect fair judgement Neuro Muscles Strength 5/5 in bilateral upper extremities 3/5 bilateral lower extremities Sensation to light touch grossly present throughout Cranial nerves II-XII grossly intact Lymphatics: no palpable cervical or supraclavicular lymph nodes Past Medical History Past Medical History: Osteoarthritis (OA) History of Any Multi-Drug Resistant Organisms: None Reported Past Surgical History: Orthopedic Surgery Additional Past Surgical History / Comment(s): BILATERAL ARTHROSCOPIC KNEE SURGERY, TOTAL RIGHT KNEE; UMBILIAL HERNIA REPAIR neck fusion c3-7, left knee, I&D?, back/Neck Past Anesthesia/Blood Transfusion Reactions: No Reported Reaction Additional Past Anesthesia/Blood Transfusion Reaction / Comment(s): thinks he had transfusion following most recent surgery Past Psychological History: No Psychological Hx Reported Smoking Status: Never smoker Past Alcohol Use History: Occasional Additional Past Alcohol Use History / Comment(s): QUIT SMOKING 25 YRS AGO Past Drug Use History: None Reported - Past Family History Mother Family Medical History: No Reported History Medications and Allergies Home Medications Medication Instructions Recorded Confirmed Type Sinex Nasal [place] 1 spray EA NOSTRIL BID 08/06/19 10/27/19 History Hydrocodone/Acetaminophen [[place] 1 tab PO Q6HR PRN 10/20/19 10/27/19 History 7.5-325] Docusate [Colace] 100 mg PO DAILY #30 capsule 10/28/19 Rx Hydrocodone/Acetaminophen [[place] 1 - 2 each PO Q6H PRN #56 tab 10/28/19 Rx 10-325] traMADol HCl [Ultram] 50 mg PO Q6H PRN #28 tab 10/28/19 Rx Cyclobenzaprine [Flexeril] 10 mg PO TID PRN #15 tab 09/27/22 Rx Ketorolac [Toradol] 10 mg PO Q8HR #15 tab 09/27/22 Rx predniSONE 50 mg PO DAILY #5 tab 09/27/22 Rx Allergies Allergy/AdvReac Type Severity Reaction Status Date / Time No Known Allergies Allergy Verified 10/07/22 20:52 Physical Exam Vitals: Vital Signs Temp Pulse Resp BP Pulse Ox 10/21/22 01:03 92 18 142/72 94 L 10/20/22 22:22 68 16 144/79 98 10/20/22 22:17 99.0 F 93 20 144/74 97 Intake and Output 10/20/22 10/20/22 10/21/22 14:59 22:59 06:59 Other: Voiding Method Indwelling Catheter Weight 140.614 kg 140.614 kg Results CBC & Chem 7: 10/21/22 00:01 10/21/22 00:01 Labs: Abnormal Lab Results - Last 24 Hours (Table) 10/21/22 10/21/22 10/21/22 Range/Units 00:01 00:01 00:01 RBC 3.03 L (4.30-5.90) m/uL Hgb 7.9 L (13.0-17.5) gm/dL Hct 25.1 L (39.0-53.0) % RDW 16.9 H (11.5-15.5) % Plt Count 621 H (150-450) k/uL PT 13.5 H (9.0-12.0) sec INR 1.3 H (<1.2) Sodium 133 L (137-145) mmol/L Calcium 8.3 L (8.4-10.2) mg/dL Phosphorus 4.7 H (2.5-4.5) mg/dL Albumin 2.6 L (3.5-5.0) g/dL Thrombosis Risk Factor Assmnt - Choose All That Apply Any of the Below Risk Factors Present?: Yes Each Factor Represents 1 point: Age 41-60 years, History of prior major surgery (<1month), Medical pt on bed rest, Obesity (BMI >25) Thrombosis Risk Factor Assessment Total Risk Factor Score: 4 Thrombosis Risk Factor Assessment Level: Moderate Risk Assessment and Plan Assessment: 52-year-old male recently diagnosed and treated for spinal at the general abscess of the cervical spine level and lumbar vertebrae level along with left septic arthritis he received his care at [facility] discharged yesterday to [facility] to continue antibiotics for 36 days however [facility] did not carry his antibiotic and he had to come to the hospital for further care I did discuss the case with the ED doctor and accepted the admission to continue IV antibiotics with anticipated length of stay less than 2 midnights Recent epidural abscess in the cervical spine no lung lumbar vertebra level with left septic arthritis status post surgical evacuation around October 08- Continue with antibiotics until November 25 (4 total of another 36 days Nafcillin 2 g every 4 hours IV piggyback Rifampin 600 mg by mouth daily Pain control with [place] when necessary Tylenol for fever when necessary Flexeril when necessary for spasms Blood work reviewed Showed subacute anemia hemoglobin 7.9 continue to monitor hemoglobin, patient denies active bleeding White count 8.6 Renal function unremarkable sodium 133 potassium 3.6 BUN 9 creatinine 0.7 DVT prophylaxis mechanical due to recent spine surgery Full code
[2022-10-21] MEDS: NAFCILLIN 2 GM in DEXTROSE 5% IN WATER 100 ML IVPB SCH ×10 (04:00→20:29)
[2022-10-21] MEDS: MORPHINE SULFATE 4 MG/ML SYRINGE IV PRN ×5 (04:01→20:30)
[2022-10-21] MEDS: rifAMPin 300 MG CAP PO SCH (08:37)
[2022-10-21] MEDS ORDERED: traMADol 50 MG TAB PO PRN (16:25)
[2022-10-21] MEDS ORDERED: polyethylene glycoL 3350 17 GM POWD.PACK PO PRN (16:25)
[2022-10-21] MEDS: methocarbamoL 750 MG TAB PO SCH ×2 (17:35→22:00)
[2022-10-21] MEDS: DOCUSATE 100 MG CAP PO SCH (20:29)
[2022-10-21] MEDS: PANTOPRAZOLE 40 MG TABLET PO SCH (20:29)
[2022-10-21] MEDS: GABAPENTIN 300 MG CAP PO SCH (22:00)
[2022-10-22] MEDS: MORPHINE SULFATE 4 MG/ML SYRINGE IV PRN ×3 (00:20→20:07)
[2022-10-22] MEDS: NAFCILLIN 2 GM in DEXTROSE 5% IN WATER 100 ML IVPB SCH ×12 (00:20→21:35)
[2022-10-22] MEDS: SODIUM CHLORIDE 0.9% 1,000 ML IV SCH (01:54)
[2022-10-22] MEDS: methocarbamoL 750 MG TAB PO SCH ×4 (09:25→21:34)
[2022-10-22] MEDS: rifAMPin 300 MG CAP PO SCH (09:25)
[2022-10-22] MEDS: PANTOPRAZOLE 40 MG TABLET PO SCH ×2 (09:25→21:34)
[2022-10-22] MEDS: DOCUSATE 100 MG CAP PO SCH ×2 (09:25→21:35)
[2022-10-22] MEDS: GABAPENTIN 300 MG CAP PO SCH ×3 (09:25→21:35)
[2022-10-22 12:47] LABS: Anisocytosis Slight; HCT 24.6 % (39.0-53.0); HGB 7.8 gm/dL (13.0-17.5); Hypochromasia Moderate; MCH 25.9 pg (25.0-35.0); MCHC 31.8 g/dL (31.0-37.0); MCV 81.4 fL (80.0-100.0); Mean Platelet Volume 7.6; Platelet Count 634 k/uL (150-450); RBC 3.03 m/uL (4.30-5.90); RDW 17.1 % (11.5-15.5); WBC 8.5 k/uL (3.8-10.6)
--- NOTE | 2022-10-22 14:28 | P.PN ---
Subjective Progress Note Date: 10/22/22 Patient is a 52 year old M that presents to [facility] from [facility]. He had a prolonged hospitalization at [facility] for surgical evacuation of cervical, lumbar vertebral and left knee abscess. He was discharged on October [address] [facility] to complete 36 more days of IV antibiotics. Unfortunately, [facility] did not have the available antibiotics. Subsequently, he was transferred to the nearest ED for further management. In the ED, his vital signs are stable, tachycardic with heart rate in the 90s. CBC showed hemoglobin of 7.9 and platelet count is 621. INR was 1.3. CMP shows sodium 133, calcium 8.3, phosphorus 4.7. Troponin was less than 0.012. BNP was 23. Albumin was 26. EKG showed sinus rhythm. Patient was admitted for IV antibiotics. 10/22 Patient was seen and examined. He reports well-controlled pain in the cervical spine. Currently has C-collar. His was updated via phone. He had no complaints. CBC shows hemoglobin of 7.8 and platelet count of 634. General: non toxic, no distress, appears at stated age Derm: warm, dry Head: atraumatic, normocephalic, symmetric, c-collar intact Eyes: EOMI, no lid lag, anicteric sclera Cardiovascular: Good distal perfusion in all 4 extremities Lungs: Breathing comfortably, no accessory muscle use Ext: no gross muscle atrophy, no edema, no contractures Neuro: no focal neuro deficits Psych: Alert, oriented, appropriate affect 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 Left septic arthritis Normocytic anemia Thrombocytosis Supratherapeutic INR Based on my assessment of this patient, this patient meets a moderate complexity level of care. Patient has an acute diagnosis of recurrent syncopal episodes that poses a threat to life or bodily function. 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: Continue Nafcillin 2g IV Q4H. Consult case management for discharge planning. Left septic arthritis Normocytic anemia: Hg 7.8. Stable. Continue to monitor. Thrombocytosis: Acute phase reactant. Supratherapeutic INR: Continue to monitor. I have reviewed the following senior management consultant notes: I have reviewed the results of the following tests: CBC. I have ordered the following tests: I have discussed the care of this patient with the following independent historian: Discussed with via phone. I have independently interpreted the following test below: I have discussed the management of this patient with the following physician: Objective - Vital Signs Vital signs: Vital Signs Temp 98.3 F 10/22/22 07:30 Pulse 91 10/22/22 07:30 Resp 19 10/22/22 07:30 BP 143/84 10/22/22 07:30 Pulse Ox 94 L 10/22/22 07:30 FiO2 Intake & Output 10/21/22 10/22/22 10/22/22 18:59 06:59 18:59 Output Total 900 500 800 Balance -900 -500 -800 Output: Urine 900 500 800 Other: Voiding Method Indwelling Catheter Indwelling Catheter Indwelling Catheter # Bowel Movements 1 1 - Labs CBC & Chem 7: 10/22/22 12:13 10/21/22 00:01 Labs: Abnormal Lab Results - Last 24 Hours (Table) 10/22/22 Range/Units 12:13 RBC 3.03 L (4.30-5.90) m/uL Hgb 7.8 L (13.0-17.5) gm/dL Hct 24.6 L (39.0-53.0) % RDW 17.1 H (11.5-15.5) % Plt Count 634 H (150-450) k/uL Microbiology - Last 24 Hours (Table) 10/21/22 00:01 Blood Culture - Preliminary Blood
[2022-10-22] MEDS: HYDROcodone/APAP 7.5-325MG 1 EACH TAB PO PRN ×2 (16:26→21:34)
[2022-10-23] MEDS: NAFCILLIN 2 GM in DEXTROSE 5% IN WATER 100 ML IVPB SCH ×12 (00:13→20:03)
[2022-10-23] MEDS: SODIUM CHLORIDE 0.9% 1,000 ML IV SCH (01:00)
[2022-10-23] MEDS: MORPHINE SULFATE 4 MG/ML SYRINGE IV PRN ×2 (01:00→07:44)
[2022-10-23] MEDS: rifAMPin 300 MG CAP PO SCH (09:43)
[2022-10-23] MEDS: PANTOPRAZOLE 40 MG TABLET PO SCH ×2 (09:43→20:03)
[2022-10-23] MEDS: DOCUSATE 100 MG CAP PO SCH ×2 (09:43→20:03)
[2022-10-23] MEDS: methocarbamoL 750 MG TAB PO SCH ×4 (09:43→21:43)
[2022-10-23] MEDS: GABAPENTIN 300 MG CAP PO SCH ×3 (09:43→21:43)
[2022-10-23] MEDS: HYDROcodone/APAP 7.5-325MG 1 EACH TAB PO PRN ×3 (09:44→21:43)
--- NOTE | 2022-10-23 11:28 | XR ---
EXAMINATION TYPE: XR shoulder complete LT DATE OF EXAM: 10/23/2022 COMPARISON: NONE HISTORY: Pain TECHNIQUE: Three views are submitted. FINDINGS: The osseous structures are intact. There is no acute fracture or dislocation. Calcification along th e humeral head. Diffuse osteopenia. Postsurgical change involving the cervical spine. IMPRESSION: 1. Correlate for calcific tendinosis of the rotator cuff. 2. Diffuse osteopenia.
--- NOTE | 2022-10-23 13:25 | P.PN ---
Subjective Progress Note Date: 10/23/22 Hospital Course: 52 year old M that presents to [facility] from [facility]. He had a prolonged hospitalization at [facility] for surgical evacuation of cervical, lumbar vertebral and left knee abscess. He was discharged on October 09 to [facility] to complete 36 more days of IV antibiotics. Unfortunately, [facility] did not have the available antibiotics. Subsequently, he was transferred to the nearest ED for further management. In the ED, his vital signs are stable, tachycardic with heart rate in the 90s. CBC showed hemoglobin of 7.9 and platelet count is 621. INR was 1.3. CMP shows sodium 133, calcium 8.3, phosphorus 4.7. Troponin was less than 0.012. BNP was 23. Albumin was 26. EKG showed sinus rhythm. Patient was admitted for IV antibiotics. Currently complaining of worsening left shoulder pain. Subjective: It seen and examined at bedside. No acute events overnight. He claims that his left shoulder is hurting more, feels similar to how he felt during left knee septic arthritis Pertinent positives and negatives as discussed above, a complete review of systems was performed and all other systems are negative. Vitals Signs Reviewed. General: nontoxic, no distress, appears at stated age Derm: warm, dry, keep dressing clean, dry, intact Head: atraumatic, normocephalic, symmetric, c-collar in place Eyes: EOMI, no lid lag, anicteric sclera Mouth: no lip lesion, mucus membranes moist Cardiovascular: S1S2 reg, no murmur Lungs: CTA bilateral, no rhonchi, no rales , no accessory muscle use Abdominal: soft, nontender to palpation, no guarding, no appreciable organomegaly Ext: Difficult to mobilize left shoulder due to pain Neuro: CN II-XI grossly intact, no focal neuro deficits Psych: Alert, oriented, appropriate affect Data Reviewed Today: Pertinent Labs: No new labs Imaging: Left shoulder x-ray shows calcific tendinosis of rotator cuff, diffuse osteopenia Assessment and Plan: Active: 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 status post surgical intervention Left septic arthritis status post surgical intervention MSSA bacteremia on nafcillin Normocytic anemia Thrombocytosis Supratherapeutic INR Left shoulder pain GERD -Continue IV nafcillin -Blood cultures negative growth to date -Per , unclear source of bacteremia -Ortho consulted for worsening left shoulder pain -Oral norco as needed, Neurontin, oxycodone as needed, Robaxin, tramadol as needed for pain DVT ppx: heparin sq Code status: full code Anticipated discharge place: [facility] Anticipated discharge time: pending clinical course Objective - Vital Signs Vital signs: Vital Signs Temp 98.5 F 10/23/22 00:34 Pulse 86 10/23/22 00:34 Resp 16 10/23/22 00:34 BP 132/81 10/23/22 00:34 Pulse Ox 95 10/23/22 00:34 FiO2 Intake & Output 10/22/22 10/23/22 10/23/22 18:59 06:59 18:59 Output Total 1625 600 Balance -1625 -600 Output: Urine 1625 600 Other: Voiding Method Indwelling Catheter Indwelling Catheter Indwelling Catheter # Bowel Movements 1 - Labs CBC & Chem 7: 10/22/22 12:13 10/21/22 00:01 Labs: Microbiology - Last 24 Hours (Table) 10/21/22 00:01 Blood Culture - Preliminary Blood
--- NOTE | 2022-10-23 14:27 | P.CNOR ---
History of Present Illness - HPI Consult date: 10/23/22 History of present illness: This is a 52-year-old male admitted for IV antibiotics. Patient was recently treated at [facility] for an abscess of his cervical spine and infected left total knee. Patient is seen and evaluated at bedside today. Orthopedics is consulted for left shoulder pain. Patient states that his shoulder pain has been going on since his neck infection started. Patient denies any new injury. Patient states that he notices some shaking when he tries to use the left arm. Patient denies any swelling or redness. Patient states that he has planned outpatient follow-up for his left knee and neck at another facility. Patient denies any numbness, weakness or tingling. Review of Systems See HPI. Past Medical History Past Medical History: Osteoarthritis (OA) History of Any Multi-Drug Resistant Organisms: None Reported Past Surgical History: Orthopedic Surgery Additional Past Surgical History / Comment(s): BILATERAL ARTHROSCOPIC KNEE SURGERY, TOTAL RIGHT KNEE; UMBILIAL HERNIA REPAIR neck fusion c3-7, left knee, I&D?, back/Neck Past Anesthesia/Blood Transfusion Reactions: No Reported Reaction Additional Past Anesthesia/Blood Transfusion Reaction / Comm: thinks he had transfusion following most recent surgery Past Psychological History: No Psychological Hx Reported Smoking Status: Never smoker Past Alcohol Use History: Occasional Additional Past Alcohol Use History / Comment(s): QUIT SMOKING 25 YRS AGO Past Drug Use History: None Reported - Past Family History Mother Family Medical History: No Reported History Medications and Allergies Home Medications Medication Instructions Recorded Confirmed Type Docusate [Colace] 100 mg PO BID 10/21/22 10/21/22 History Gabapentin [Neurontin] 300 mg PO TID 10/21/22 10/21/22 History Nafcillin [Nafcil] 2 gm IVPB Q4H 10/21/22 10/21/22 History Omeprazole [PriLOSEC] 20 mg PO BID 10/21/22 10/21/22 History Ondansetron [Zofran] 4 mg PO Q8HR PRN 10/21/22 10/21/22 History Pantoprazole Sodium [Protonix] 40 mg PO BID 10/21/22 10/21/22 History Sennosides [Senokot] 17.2 mg PO BID 10/21/22 10/21/22 History methocarbamoL [Methocarbamol] 750 mg PO QID 10/21/22 10/21/22 History oxyCODONE HCL [Oxycodone HCl] 15 mg PO Q3H PRN 10/21/22 10/21/22 History polyethylene glycoL 3350 [Miralax] 17 gm PO Q4HR PRN 10/21/22 10/21/22 History rifAMPin [Rifadin] 600 mg PO DAILY 10/21/22 10/21/22 History traMADol HCl [Ultram] 50 mg PO Q4H PRN 10/21/22 10/21/22 History Allergies Allergy/AdvReac Type Severity Reaction Status Date / Time No Known Allergies Allergy Verified 10/21/22 11:01 Physical Examination On exam patient is resting comfortably in bed in no acute distress. Patient has a c-collar placed. Patient is alert and oriented 3. Patient has full passive motion of the left shoulder. There is some discomfort with active motion. There is mild tenderness to palpation over the anterior aspect of the left shoulder. Left upper extremity is warm and well-perfused. Neurovascular status and circulatory status are intact. Results X-rays of the left shoulder are reviewed and are negative. - Labs Labs: Microbiology - Last 24 Hours (Table) 10/21/22 00:01 Blood Culture - Preliminary Blood H & H 10/21/22 10/22/22 Range/Units 00:01 12:13 Hgb 7.9 L 7.8 L (13.0-17.5) gm/dL Hct 25.1 L 24.6 L (39.0-53.0) % Coagulation 10/21/22 Range/Units 00:01 INR 1.3 H (<1.2) Result Diagrams: 10/22/22 12:13 10/21/22 00:01 Assessment and Plan (1) Left shoulder pain Current Visit: Yes Status: Acute Code(s): M25.512 - PAIN IN LEFT SHOULDER SNOMED Code(s): 1630187878 (2) Bacteremia Current Visit: Yes Status: Acute Code(s): R78.81 - BACTEREMIA SNOMED Code(s): 1415182 Plan: 1. X-rays of the left shoulder are reviewed and are negative. There is no surgical intervention planned. Patient states that he has planned outpatient follow-up with another orthopedic physician for his left knee and neck and plans to follow-up with them regarding the left shoulder in the future.
[2022-10-23] MEDS: HEPARIN SODIUM,PORCINE 5,000 UNIT/ML 1 ML VIAL SQ SCH (16:28)
[2022-10-24] MEDS: MORPHINE SULFATE 4 MG/ML SYRINGE IV PRN ×3 (00:09→09:36)
[2022-10-24] MEDS: HEPARIN SODIUM,PORCINE 5,000 UNIT/ML 1 ML VIAL SQ SCH ×3 (00:10→15:44)
[2022-10-24] MEDS: NAFCILLIN 2 GM in DEXTROSE 5% IN WATER 100 ML IVPB SCH ×12 (00:10→20:38)
[2022-10-24] MEDS: SODIUM CHLORIDE 0.9% 1,000 ML IV SCH (03:48)
[2022-10-24] MEDS: HYDROcodone/APAP 7.5-325MG 1 EACH TAB PO PRN ×3 (06:54→22:45)
[2022-10-24 07:39] LABS: Anisocytosis Slight; Basophils % (A) 0 %; Eosinophils # (A) 0.1 k/uL (0-0.7); Eosinophils % (A) 2 %; HCT 25.8 % (39.0-53.0); Hypochromasia Moderate; Lymphocytes # (A) 1.3 k/uL (1.0-4.8); Lymphocytes % (A) 21 %; MCHC 30.8 g/dL (31.0-37.0); MCV 81.1 fL (80.0-100.0); Microcytosis Slight; Monocytes # (A) 0.4 k/uL (0-1.0); Monocytes % (A) 7 %; Neutrophils # (A) 4.2 k/uL (1.3-7.7); Neutrophils % (A) 67 %; Platelet Count 563 k/uL (150-450); RBC 3.18 m/uL (4.30-5.90); WBC 6.3 k/uL (3.8-10.6)
[2022-10-24 07:58] LABS: African American GFR (CKD) >90 (>60 ml/min/1.73 sqM); Anion Gap 6 mmol/L; Blood Urea Nitrogen 6 mg/dL (9-20); Calcium 8.5 mg/dL (8.4-10.2); Carbon Dioxide 26 mmol/L (22-30); Chloride 102 mmol/L (98-107); Glucose 104 mg/dL (74-99); Non-African American GFR(CKD) >90 (>60 ml/min/1.73 sqM); Potassium 3.5 mmol/L (3.5-5.1); Sodium 134 mmol/L (137-145)
[2022-10-24] MEDS: GABAPENTIN 300 MG CAP PO SCH ×3 (08:44→20:39)
[2022-10-24] MEDS: methocarbamoL 750 MG TAB PO SCH ×4 (08:44→20:39)
[2022-10-24] MEDS: DOCUSATE 100 MG CAP PO SCH ×2 (08:44→20:39)
[2022-10-24] MEDS: rifAMPin 300 MG CAP PO SCH (08:44)
[2022-10-24] MEDS: PANTOPRAZOLE 40 MG TABLET PO SCH ×2 (08:44→20:39)
--- NOTE | 2022-10-24 10:56 | P.PN ---
Subjective Progress Note Date: 10/24/22 Hospital Course: 52 year old M that presents to [facility] from [facility]. He had a prolonged hospitalization at for surgical evacuation of cervical, lumbar vertebral and left knee abscess. He was discharged on October 09 to [facility] to complete 36 more days of IV antibiotics. Unfortunately, [facility] did not have the available antibiotics. Subsequently, he was transferred to the nearest ED for further management. In the ED, his vital signs are stable, tachycardic with heart rate in the 90s. CBC showed hemoglobin of 7.9 and platelet count is 621. INR was 1.3. CMP shows sodium 133, calcium 8.3, phosphorus 4.7. Troponin was less than 0.012. BNP was 23. Albumin was 26. EKG showed sinus rhythm. Patient was admitted for IV antibiotics. Complaining of worsening left shoulder pain. Orthopedics consulted. Will need outpatient follow-up. No acute surgical intervention is needed. PICC line nonfunctioning, new PICC line to be inserted, PT/OT to follow up and then possible rehab discharge. Subjective: Patient seen and examined at bedside. No acute events overnight. Shoulder pain is still present, but improving. Pertinent positives and negatives as discussed above, a complete review of systems was performed and all other systems are negative. Vitals Signs Reviewed. General: nontoxic, no distress, appears at stated age Derm: warm, dry, keep dressing clean, dry, intact Head: atraumatic, normocephalic, symmetric, c-collar in place Eyes: EOMI, no lid lag, anicteric sclera Mouth: no lip lesion, mucus membranes moist Cardiovascular: S1S2 reg, no murmur Lungs: CTA bilateral, no rhonchi, no rales , no accessory muscle use Abdominal: soft, nontender to palpation, no guarding, no appreciable organomegaly Ext: Difficult to mobilize left shoulder due to pain Neuro: CN II-XI grossly intact, no focal neuro deficits Psych: Alert, oriented, appropriate affect Data Reviewed Today: Pertinent Labs: Hemoglobin 8.0, platelet of 563, sodium 134, creatinine 0.67 Imaging: No new imaging Assessment and Plan: Active: 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 status post surgical intervention Left septic arthritis status post surgical intervention MSSA bacteremia on nafcillin Normocytic anemia, stable Thrombocytosis, stable Supratherapeutic INR Left shoulder pain GERD -Continue IV nafcillin -Blood cultures negative growth to date -Per , unclear source of bacteremia -Ortho recommending outpatient follow-up for left shoulder -Oral norco as needed, Neurontin, oxycodone as needed, Robaxin, tramadol as needed for pain -PICC line replacement pending -Patient will need prior authorization for rehab discharge -PT/OT consult ordered DVT ppx: heparin sq Code status: full code Anticipated discharge place: [facility] Anticipated discharge time: pending clinical course Objective - Vital Signs Vital signs: Vital Signs Temp 98.4 F 10/24/22 08:06 Pulse 87 10/24/22 08:06 Resp 16 10/24/22 08:06 BP 126/76 10/24/22 08:06 Pulse Ox 95 10/24/22 08:06 FiO2 Intake & Output 10/23/22 10/24/22 10/24/22 18:59 06:59 18:59 Output Total 825 800 Balance -825 -800 Output: Urine 825 800 Other: Voiding Method Indwelling Catheter Indwelling Catheter - Labs CBC & Chem 7: 10/24/22 06:48 10/24/22 06:48 Labs: Abnormal Lab Results - Last 24 Hours (Table) 10/24/22 10/24/22 Range/Units 06:48 06:48 RBC 3.18 L (4.30-5.90) m/uL Hgb 8.0 L (13.0-17.5) gm/dL Hct 25.8 L (39.0-53.0) % MCHC 30.8 L (31.0-37.0) g/dL RDW 17.0 H (11.5-15.5) % Plt Count 563 H (150-450) k/uL Sodium 134 L (137-145) mmol/L BUN 6 L (9-20) mg/dL Glucose 104 H (74-99) mg/dL Microbiology - Last 24 Hours (Table) 10/21/22 00:01 Blood Culture - Preliminary Blood
[2022-10-24] MEDS ORDERED: LIDOCAINE 1% INJ 10MG/ML (20 ML MDV) SQ ONE (11:15)
--- NOTE | 2022-10-24 11:37 | IR ---
PICC LINE PLACEMENT: HISTORY: Malfunctioning PICC line placed at [facility] PROCEDURE: Fluoroscopic guided right upper extremity PICC line exchange over guidewire. COMPLICATIONS: None ANESTHESIA: 1. 1% Lidocaine locally. FINDINGS/TECHNIQUE: The procedure was explained to the patient. The risks, complications, benefits and alternatives were discussed and any questions were answered. Informed consent was obtained. The patient was placed supine on the fluoroscopic table and prepped and draped in the usual sterile fash ion. A previously placed right upper extremity PICC line at [facility] was cut and there is pl acement of a 0.018 guidewire. The vein is patent. A 4-F sheath was placed over the guidewire. The guidewire and dilator were removed and a 4-F. PICC line was placed through the sheath with the tip at the level of the SVC. The sheath was removed, the catheter was flushed and sutured into position. The patient was stable throughout the procedure and remained stable upon discharge from the [facility]. The vein puncture was patent under ultrasound. A phan scale image was obtained to document patency of the vein punctured. All elements of the maximal barrier technique were utilized. FLUOROSCOPY TIME: DAP 0.7481Gy cm2 IMPRESSION: Successful PICC line exchange over guidewire under fluoroscopic guidance.
[2022-10-25] MEDS: HEPARIN SODIUM,PORCINE 5,000 UNIT/ML 1 ML VIAL SQ SCH ×3 (00:36→15:19)
[2022-10-25] MEDS: MORPHINE SULFATE 4 MG/ML SYRINGE IV PRN ×3 (00:36→10:38)
[2022-10-25] MEDS: SODIUM CHLORIDE 0.9% 1,000 ML IV SCH (00:42)
[2022-10-25] MEDS: NAFCILLIN 2 GM in DEXTROSE 5% IN WATER 100 ML IVPB SCH ×12 (00:46→20:42)
[2022-10-25] MEDS: rifAMPin 300 MG CAP PO SCH (08:49)
[2022-10-25] MEDS: methocarbamoL 750 MG TAB PO SCH ×4 (08:50→22:20)
[2022-10-25] MEDS: GABAPENTIN 300 MG CAP PO SCH ×3 (08:50→22:20)
[2022-10-25] MEDS: HYDROcodone/APAP 7.5-325MG 1 EACH TAB PO PRN ×2 (08:50→20:42)
[2022-10-25] MEDS: DOCUSATE 100 MG CAP PO SCH ×2 (08:50→20:42)
[2022-10-25] MEDS: PANTOPRAZOLE 40 MG TABLET PO SCH ×2 (08:50→20:42)
--- NOTE | 2022-10-25 13:01 | P.PN ---
Subjective Progress Note Date: 10/25/22 Hospital Course: 52 year old M that presents to [facility] from [facility]. He had a prolonged hospitalization at [facility] for surgical evacuation of cervical, lumbar vertebral and left knee abscess. He was discharged on October 09 to [facility] to complete 36 more days of IV antibiotics. Unfortunately, [facility] did not have the available antibiotics. Subsequently, he was transferred to the nearest ED for further management. In the ED, his vital signs are stable, tachycardic with heart rate in the 90s. CBC showed hemoglobin of 7.9 and platelet count is 621. INR was 1.3. CMP shows sodium 133, calcium 8.3, phosphorus 4.7. Troponin was less than 0.012. BNP was 23. Albumin was 26. EKG showed sinus rhythm. Patient was admitted for IV antibiotics. Complaining of worsening left shoulder pain. Orthopedics consulted. Will need outpatient follow-up. No acute surgical intervention is needed. PICC line nonfunctioning, new PICC line to be inserted, PT/OT to follow up and then possible rehab discharge. Subjective: Patient seen and examined at bedside. No acute events overnight. Shoulder pain is still present, but improving. Pertinent positives and negatives as discussed above, a complete review of systems was performed and all other systems are negative. Vitals Signs Reviewed. General: nontoxic, no distress, appears at stated age Derm: warm, dry, keep dressing clean, dry, intact Head: atraumatic, normocephalic, symmetric, c-collar in place Eyes: EOMI, no lid lag, anicteric sclera Mouth: no lip lesion, mucus membranes moist Cardiovascular: S1S2 reg, no murmur Lungs: CTA bilateral, no rhonchi, no rales , no accessory muscle use Abdominal: soft, nontender to palpation, no guarding, no appreciable organomegaly Ext: Difficult to mobilize left shoulder due to pain Neuro: CN II-XI grossly intact, no focal neuro deficits Psych: Alert, oriented, appropriate affect Data Reviewed Today: Pertinent Labs: no new labs Imaging: No new imaging Assessment and Plan: Active: 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 status post surgical intervention Left septic arthritis status post surgical intervention MSSA bacteremia on nafcillin Normocytic anemia, stable Thrombocytosis, stable Supratherapeutic INR Left shoulder pain GERD -Continue IV nafcillin -Blood cultures negative growth to date -Per , unclear source of bacteremia -Ortho recommending outpatient follow-up for left shoulder -Oral norco as needed, Neurontin, oxycodone as needed, Robaxin, tramadol as needed for pain -PICC line replacement completed -Patient will need prior authorization for rehab discharge -PT/OT DVT ppx: heparin sq Code status: full code Anticipated discharge place: [facility] Anticipated discharge time: pending rehab bed Objective - Vital Signs Vital signs: Vital Signs Temp 98.1 F 10/25/22 09:16 Pulse 94 10/25/22 07:45 Resp 18 10/25/22 10:27 BP 132/82 10/25/22 07:45 Pulse Ox 95 10/25/22 08:11 FiO2 Intake & Output 10/24/22 10/25/22 10/25/22 18:59 06:59 18:59 Output Total 350 450 Balance -350 -450 Output: Urine 350 450 Other: Voiding Method Indwelling Catheter Indwelling Catheter Indwelling Catheter - Labs CBC & Chem 7: 10/24/22 06:48 10/24/22 06:48 Labs: Microbiology - Last 24 Hours (Table) 10/21/22 00:01 Blood Culture - Preliminary Blood
[2022-10-26] MEDS: NAFCILLIN 2 GM in DEXTROSE 5% IN WATER 100 ML IVPB SCH ×8 (00:02→11:17)
[2022-10-26] MEDS: HEPARIN SODIUM,PORCINE 5,000 UNIT/ML 1 ML VIAL SQ SCH ×2 (00:02→08:13)
[2022-10-26] MEDS: SODIUM CHLORIDE 0.9% 1,000 ML IV SCH (01:40)
[2022-10-26] MEDS: MORPHINE SULFATE 4 MG/ML SYRINGE IV PRN (02:17)
[2022-10-26] MEDS: HYDROcodone/APAP 7.5-325MG 1 EACH TAB PO PRN ×2 (06:59→13:33)
[2022-10-26] MEDS: DOCUSATE 100 MG CAP PO SCH (08:10)
[2022-10-26] MEDS: GABAPENTIN 300 MG CAP PO SCH (08:10)
[2022-10-26] MEDS: rifAMPin 300 MG CAP PO SCH (08:10)
[2022-10-26] MEDS: PANTOPRAZOLE 40 MG TABLET PO SCH (08:10)
[2022-10-26] MEDS: methocarbamoL 750 MG TAB PO SCH ×2 (08:10→13:25)
[2022-10-26 09:51] VITALS: RESP 18
--- NOTE | 2022-10-26 12:44 | P.DS ---
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 He had a prolonged hospitalization at [facility] for surgical evacuation of cerv ical, lumbar vertebral and left knee abscess. He was discharged on October 09 to [facility] to complete IV antibiotics. Unfortunately, [facility] did not have the available antibiotics. Subsequently, he was transferred to the nearest ED for further management. In the ED, his vital signs are stable, tachycardic with heart rate in the 90s. CBC showed hemoglobin of 7.9 and platelet count is 621. INR was 1.3. CMP shows sodium 133, calcium 8.3, phosphorus 4.7. Troponin was less than 0.012. BNP was 23. Albumin was 26. EKG showed sinus rhythm. Patient was admitted for IV antibiotics. Complaining of worsening left shoulder pain. Orthopedics consulted. Will need outpatient follow-up. No acute surgical intervention is needed. PICC line nonfunctioning, new PICC line placed. Now going to rehab on IV abx till Nov 25. Patient also has a cloud in place that was started at [facility] for urinary retention. Consider voiding trial once he is more functional. Patient seen and examined at bedside. Vital signs reviewed and stable. General: nontoxic, no distress, appears at stated age Derm: warm, dry, dressing clean, dry, intact Head: atraumatic, normocephalic, symmetric, c-collar in place Eyes: EOMI, no lid lag, anicteric sclera Mouth: no lip lesion, mucus membranes moist Cardiovascular: S1S2 reg, no murmur Lungs: CTA bilateral, no rhonchi, no rales , no accessory muscle use Abdominal: soft, nontender to palpation, no guarding, no appreciable organomegaly Ext: Difficult to mobilize left shoulder due to pain Neuro: CN II-XI grossly intact, no focal neuro deficits Psych: Alert, oriented, appropriate affect A total of 36 minutes of time were spent preparing this complex discharge summary. Patient was discharged on 10/26/22 at 11:38. Patient Condition at Discharge: Stable Plan - Discharge Summary Discharge Rx Participant: Yes New Discharge Prescriptions: New HYDROcodone/APAP 7.5-325MG [[place] 7.5-325] 1 each PO Q6HR PRN #10 tab PRN Reason: Pain Continue rifAMPin [Rifadin] 600 mg PO DAILY Ondansetron [Zofran] 4 mg PO Q8HR PRN PRN Reason: Nausea And Vomiting polyethylene glycoL 3350 [Miralax] 17 gm PO Q4HR PRN PRN Reason: Constipation Sennosides [Senokot] 17.2 mg PO BID Pantoprazole Sodium [Protonix] 40 mg PO BID Omeprazole [PriLOSEC] 20 mg PO BID methocarbamoL [Methocarbamol] 750 mg PO QID Gabapentin [Neurontin] 300 mg PO TID Docusate [Colace] 100 mg PO BID Nafcillin [Nafcil] 2 gm IVPB Q4H #1 each Discontinued traMADol HCl [Ultram] 50 mg PO Q4H PRN PRN Reason: Pain oxyCODONE HCL [Oxycodone HCl] 15 mg PO Q3H PRN PRN Reason: Pain Discharge Medication List Docusate [Colace] 100 mg PO BID 10/21/22 [History] Gabapentin [Neurontin] 300 mg PO TID 10/21/22 [History] Omeprazole [PriLOSEC] 20 mg PO BID 10/21/22 [History] Ondansetron [Zofran] 4 mg PO Q8HR PRN 10/21/22 [History] Pantoprazole Sodium [Protonix] 40 mg PO BID 10/21/22 [History] Sennosides [Senokot] 17.2 mg PO BID 10/21/22 [History] methocarbamoL [Methocarbamol] 750 mg PO QID 10/21/22 [History] polyethylene glycoL 3350 [Miralax] 17 gm PO Q4HR PRN 10/21/22 [History] rifAMPin [Rifadin] 600 mg PO DAILY 10/21/22 [History] HYDROcodone/APAP 7.5-325MG [[place] 7.5-325] 1 each PO Q6HR PRN #10 tab 10/26/22 [Rx] Nafcillin [Nafcil] 2 gm IVPB Q4H #1 each 10/26/22 [Rx] Follow up Appointment(s)/Referral(s): Kang Ma, [NON-STAFF] - As Needed Gerson Barba DO [Primary Care Provider] - 1-2 days Patient Instructions/Handouts: Weakness (ED), Septic Arthritis (DC), Bacteremia (DC) Activity/Diet/Wound Care/Special Instructions: Please see your orthopedic surgeon for your neck and knee. Please see your PCP. Discharge Disposition: TRANSFER TO SNF/ECF
[2022-10-26 13:49] VITALS: BP 143/80; PULSE 94; TEMP 97.8
== END 2022-10-26 13:56 ==
LOC: EC 22:09 → 4SSUR 10-21 00:19 → INTOOBSV 10-21 00:19 → 4SSUR 10-21 00:40
PROVIDERS: ADMIT Internal Medicine; ATTEND Internal Medicine
DX: Z48.89 Encounter for other specified surgical aftercare (principal); G06.1 Intraspinal abscess and granuloma; T82.514A Breakdown (mechanical) of infusion catheter, initial encounter; Y71.2 Prosthetic and other implants, materials and accessory cardiovascular devices associated with adverse incidents; R53.1 Weakness; A49.01 Methicillin susceptible Staphylococcus aureus infection, unspecified site; R78.81 Bacteremia; M25.512 Pain in left shoulder; D64.9 Anemia, unspecified; D75.839 Thrombocytosis, unspecified; R79.1 Abnormal coagulation profile; K21.9 Gastro-esophageal reflux disease without esophagitis; R55 Syncope and collapse; M00.9 Pyogenic arthritis, unspecified; R33.9 Retention of urine, unspecified; Z98.890 Other specified postprocedural states; Z79.899 Other long term (current) drug therapy
CPT/HCPCS: 96376 ×5; 96361 ×3; 96366 ×4; 96372 ×2; 96365; 96375; 99284; 36415; 94760 ×3; 93005; 97116; 97162; 97530; 97166; 36573; 83880; 80053; 80048; 83605; 83735; 84100; 84484; 85025 ×2; 85027; 85610; 85730; 87040; 73030; G0378 ×6; C1751; C1769; J2270 ×7; J1644 ×4; J2405; J2001

== ENCOUNTER → 2024-02-06 | Outpatient (CLI) | payer BC ==
--- NOTE | 2024-02-07 09:05 | CT ---
EXAMINATION TYPE: CT facial bones wo con DATE OF EXAM: 02/06/2024 4:39 PM COMPARISON: None. CLINICAL INDICATION: Male, 53 years old with history of J01.90 SINUSITIS J34.2 DEVIATED SEPTUM J30.9 RHINI, sinusitis, deviated septum, TECHNIQUE: Axial CT was performed with sagittal and coronal reformats. IV CONTRAST: , patient injected with mL of . (None if empty) CT DLP: 680.1 mGycm, Automated exposure control for dose reduction was used. FINDINGS: The paranasal sinuses demonstrate normal aeration and development. The paranasal sinuses are free of mucosal thickening or air fluid level. The osteal meatal units are patent bilaterally. The nasal septum is midline. Bilateral middle turbinate cheryl bullosa. No bony destructive changes are seen within the field of view. IMPRESSION: The nasal septum is midline. Bilateral middle turbinate cheryl bullosa. [facility], , 02/07/2024 9:02 AM
== END | disposition home or self-care (01) ==
LOC: RADCTMAIN 15:49
PROVIDERS: ATTEND Family Medicine
DX: J01.90 Acute sinusitis, unspecified (principal); J34.2 Deviated nasal septum; J30.9 Allergic rhinitis, unspecified; R11.0 Nausea; J34.89 Other specified disorders of nose and nasal sinuses
CPT/HCPCS: 70486

== ENCOUNTER → 2024-07-24 | Outpatient (CLI) | payer BC ==
--- NOTE | 2024-07-26 22:19 | CT ---
EXAMINATION TYPE: CT cervical spine w con DATE OF EXAM: 07/24/2024 COMPARISON: CT cervical spine October 07, 2022 CLINICAL INDICATION: Male, 53 years old with history of M46.20 VERTEBRAL OSTEOMYELITIS, vertebral ost eomyelitis, pain TECHNIQUE: CT scan of the cervical spine is obtained with IV contrast, axial images are obtained, sa gittal and coronal reformatted images are also reviewed. CT DLP: 975.9 mGycm. Automated Exposure Control for Dose Reduction was Utilized. Contrast: with IV Contrast, patient injected with 100 ml mL of Isovue 300., (none if empty) FINDINGS: Cervical spine is visualized in its entirety from C1 through upper thoracic levels, there i s now anterior fusion plate with artificial disc material from C3 through C7 levels. There is mild to moderate disc space narrowing at C7-T1 level otherwise vertebral body heights and disc space heights are maintained above and below surgical levels. Spinal canal is grossly preserved. There is slight g rade 1 anterolisthesis of C2 on C3 redemonstrated. Review of axial images shows no significant spinal canal stenosis or neural foraminal narrowing at an y cervical level. Lung apices are clear without pneumothorax. Thyroid gland appears unremarkable. No suspicious enhancement is seen. IMPRESSION: Surgical changes C3-C7 level with stable spondylolisthesis at C2-C3 level. No acute find ings are present. Spinal canal is preserved. [facility], , 07/26/2024 10:17 PM
== END | disposition home or self-care (01) ==
LOC: RADCTMAIN 08:59
PROVIDERS: ATTEND Internal Medicine
DX: M43.12 Spondylolisthesis, cervical region (principal); M46.20 Osteomyelitis of vertebra, site unspecified
CPT/HCPCS: 72126; Q9967